=== PATIENT | male | born 1965 | race African-American/Black ===

== ENCOUNTER 2016-09-22 18:37 | Emergency (ER) | payer OTHER ==
[~2016-09-22] VITALS: Ht 170.2 cm; Wt 81.6 kg
[~2016-09-22 18:37] MED LIST: AMLO10TA2 PO; HYDR-971 PO; HYDR25TA9 PO; LISI-334 PO; METO25TA4 PO; NAPR500T3 PO; TRAM50TA PO
[2016-09-22 19:36] VITALS: BP 165/100
--- NOTE | 2016-09-22 20:00 | PHYS DOC ---
Past Medical History Past Medical History: High Cholesterol, Hypertension Additional Past Medical Histor: rt side No's Palsy,alcoholism,dyslipedemia,L hip pain,migraine, gout Past Surgical History: Other Additional Past Surgical Histo: hand surgery Alcohol Use: Heavy Drug Use: None Adult General Chief Complaint Chief Complaint: HIP PAIN HPI HPI Patient is a 51 year old male presents emergency department stating that he has having left hip pain. He states that he has a history of left hip pain for the last 4 years. He states he's been having increased difficulty with ambulation. He states that he is having pain right at the hip area denies any injuries or traumas. He is unsure of what medications he takes. Patient has been drinking alcohol today and is unable to provide a lot of information. Patient is able to ambulate with a good steady gait. Peripheral pulses are 2+. Review of Systems Review of Systems Constitutional: Denies fever or chills [] Eyes: Denies change in visual acuity, redness, or eye pain [] HENT: Denies nasal congestion or sore throat [] Respiratory: Denies cough or shortness of breath [] Cardiovascular: No additional information not addressed in HPI [] Musculoskeletal: Denies back pain. C/o left hip pain and discomfort Integument: Denies rash or skin lesions [] Neurologic: Denies headache, focal weakness or sensory changes [] Current Medications Current Medications Current Medications Medications (Trade) Dose Ordered Sig/[facility] Start Time Stop Time Status Last Admin Dose Admin Naproxen (Naprosyn) 500 mg 1X ONCE 09/22/16 20:15 09/22/16 20:16 DC 09/22/16 20:38 500 MG Allergies Allergies Allergies Coded Allergies Type Severity Reaction Last Updated Verified No Known Drug Allergies 08/17/13 No Physical Exam Physical Exam Constitutional: Well developed, well nourished, no acute distress, non-toxic appearance. [] HENT: Normocephalic, atraumatic, bilateral external ears normal, oropharynx moist, no oral exudates, nose normal. [] Eyes: PERRLA, EOMI, conjunctiva normal, no discharge. [] Neck: Normal range of motion, no tenderness, supple, no stridor. [] Cardiovascular:Heart rate regular rhythm, no murmur [] Lungs & Thorax: Bilateral breath sounds clear to auscultation [] Abdomen: Bowel sounds normal, soft, no tenderness, no masses, no pulsatile masses. [] Skin: Warm, dry, no erythema, no rash. [] Back: No tenderness Extremities: Left hip tenderness, no cyanosis, no clubbing, ROM intact, no edema. Patient with full range of motion noted. Peripheral pulses 2+. Neurologic: Alert and oriented X 3, normal motor function, normal sensory function, no focal deficits noted. [] Psychologic: Affect normal, judgement normal, mood normal. [] Current Patient Data Vital Signs Vital Signs Date Time Temp Pulse Resp B/P Pulse Ox O2 Delivery O2 Flow Rate FiO2 09/22/16 19:36 98.2 90 20 95 Room Air 98.2 EKG EKG [] Radiology/Procedures Radiology/Procedures [] Course & Med Decision Making Course & Med Decision Making Pertinent Labs and Imaging studies reviewed. (See chart for details) X-rays were negative for any fractures per Dr. Zhang. Patient will be provided with orthopedic to follow-up with. Recommended ibuprofen 800 mg every 8 hours. Patient will be discharged home in stable condition signs and symptoms to return back to emergency department has been provided. Patient agrees with discharge instructions treatment regimens and follow-up recommendations. [] Dragon Disclaimer Dragon Disclaimer This electronic medical record was generated, in whole or in part, using a voice recognition dictation system. Departure Departure Impression: Primary Impression: Hip pain, left Disposition: 01 HOME, SELF-CARE Condition: STABLE Referrals: NO PCP (PCP) DHEERAJ LOTT MD Patient Instructions: Hip Pain Additional Instructions: Activity as tolerated. Ibuprofen 800 mg every 8 hours with food. Stop taking few develop an upset stomach. Follow-up with orthopedic in the next 5-7 days. Return back to emergency department signs and symptoms of become worse. TONI BOWEN NP Sep 22, 2016 20:00
[2016-09-22] MEDS ORDERED: NAPROXEN 500 MG TABLET PO ONE (20:15)
--- NOTE | 2016-09-23 08:10 | RAD ---
Indication chronic nontraumatic left hip pain. An AP view of the pelvis was obtained as well as individual AP and frog leg views targeted to the left hip. There are substantial degenerative changes involving the left hip joint. There is significant joint space narrowing and mild sclerosis of the acetabular roof. Acute finding is not seen. 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 IMPRESSION: Substantial degenerative changes involving the left hip.
== END 2016-09-22 21:05 | disposition home or self-care (01) ==
LOC: ER 18:37
DX: M25.552 Pain in left hip (principal); M10.9 Gout, unspecified; E78.00 Pure hypercholesterolemia, unspecified; I10 Essential (primary) hypertension; G43.909 Migraine, unspecified, not intractable, without status migrainosus; E78.5 Hyperlipidemia, unspecified
CPT/HCPCS: 73502; 99284

== ENCOUNTER 2016-10-29 16:49 | Emergency (ER) | payer OTHER ==
[~2016-10-29] VITALS: Ht 170.2 cm; Wt 86.2 kg
[2016-10-29 17:34] VITALS: BP 127/81
[2016-10-29] MEDS ORDERED: NAPR375T3 PO (17:44)
--- NOTE | 2016-10-29 17:44 | PHYS DOC ---
Past Medical History Past Medical History: High Cholesterol, Hypertension Additional Past Medical Histor: rt side No's Palsy,alcoholism,dyslipedemia,L hip pain,migraine, gout Past Surgical History: Other Additional Past Surgical Histo: hand surgery Alcohol Use: Heavy Drug Use: None Adult General Chief Complaint Chief Complaint: ALCOHOL INTOXICATION HPI HPI Patient is a 51 year old female who presents with complaint of elevated blood pressure. Patient says the blood pressure has been elevated "for a long time". He is prescribed lisinopril in addition to 2 other blood pressure medications that he cannot recall. Patient says he has been compliant with his blood pressure medicines. He also reports chronic pain in his left hip, for which she has not taken any meds because he says he does not have them at home. No change from the chronic pain. He does report drinking some alcohol earlier today. He denies any chest discomfort, shortness of breath, lightheadedness. Review of Systems Review of Systems Constitutional: Denies fever or chills Eyes: Denies change in visual acuity or eye pain HENT: Denies nasal congestion or sore throat Respiratory: Denies cough or shortness of breath Cardiovascular: Denies chest pain GI: Denies abdominal pain, nausea, vomiting, bloody stools or diarrhea : Denies dysuria or hematuria Musculoskeletal: Denies back pain or joint pain Integument: Denies rash or skin lesions Neurologic: Denies headache, focal weakness or sensory changes Current Medications Current Medications Current Medications Medications (Trade) Dose Ordered Sig/Bob Start Time Stop Time Status Last Admin Dose Admin Naproxen (Naprosyn) 500 mg 1X ONCE 10/29/16 17:45 10/29/16 17:46 DC 10/29/16 17:45 500 MG Allergies Allergies Allergies Coded Allergies Type Severity Reaction Last Updated Verified No Known Drug Allergies 08/17/13 No Physical Exam Physical Exam Constitutional: Well developed, well nourished, no acute distress, non-toxic appearance. Intoxicated. HENT: Normocephalic, atraumatic, bilateral external ears normal Eyes: EOMI, conjunctiva normal, no discharge Neck: Normal range of motion, no stridor Cardiovascular: Heart rate normal, regular rhythm, no murmur Lungs & Thorax: Bilateral breath sounds clear to auscultation Abdomen: Bowel sounds normal, soft, non-distended, no TTP Skin: Warm, dry, no erythema, no rash Extremities: No obvious deformity, no edema; Mild TTP over lateral L hip; full ROM, sensation to light touch fully intact; 2+ DP pulse Neurologic: Alert and oriented X 3, no gross deficits noted Current Patient Data Vital Signs Vital Signs Date Time Temp Pulse Resp B/P Pulse Ox O2 Delivery O2 Flow Rate FiO2 10/29/16 17:34 76 18 127/81 97 Room Air 10/29/16 17:02 97.0 97.0 EKG EKG [] Radiology/Procedures Radiology/Procedures [] Course & Med Decision Making Course & Med Decision Making Pertinent Labs and Imaging studies reviewed. (See chart for details) Patient is 51-year-old male who presents with complaint of elevated blood pressure. I cycled the blood pressure when I walked into the room and it was 127 /81; of course no indication to treat his blood pressure, and he is prescribed medications that she says he has been compliant with. Also complaint of left hip pain which is chronic; review of old records shows significant degenerative changes to that hip. I discussed this with patient, and the need to follow up with orthopedic. Will give him a dose of naproxen in the ED for this pain and send him home with prescription for same. He is mildly intoxicated, however he is able to speak clearly and ambulate without assistance. His mother is present and has agreed to take him home. Will discharge with instructions to follow-up with PCP and return precautions. Dragon Disclaimer Dragon Disclaimer This electronic medical record was generated, in whole or in part, using a voice recognition dictation system. Departure Departure Impression: Primary Impression: Hip pain, left Disposition: HOME, SELF-CARE Condition: STABLE Referrals: NO PCP (PCP) BRIANNE MAHER MD Patient Instructions: Hip Pain, Hypertension Additional Instructions: Thank you for allowing us to provide care today in the Emergency Department. Take the provided medication as directed. Continue to take the blood pressure medication that you have already been prescribed. Schedule a follow up appointment with an orthopedist using the provided contact information. Return promptly to the Emergency Department if you develop any new or concerning symptoms. Scripts Naproxen 375 Mg [id number] Mg PO BID PRN PAIN #20 Prov:JUDI GARCIA MD 10/29/16 JUDI GARCIA MD Oct 29, 2016 17:44
[2016-10-29] MEDS ORDERED: NAPROXEN 500 MG TABLET PO ONE (17:45)
== END 2016-10-29 18:16 | disposition home or self-care (01) ==
LOC: ER 16:49
DX: I10 Essential (primary) hypertension (principal); M25.552 Pain in left hip; G89.29 Other chronic pain; M10.9 Gout, unspecified; E78.00 Pure hypercholesterolemia, unspecified; G43.909 Migraine, unspecified, not intractable, without status migrainosus
CPT/HCPCS: 99284-25

== ENCOUNTER 2017-07-28 19:25 | Emergency (ER) | payer SELFPAY ==
[~2017-07-28] VITALS: Ht 170.2 cm; Wt 86.2 kg
[~2017-07-28 19:25] MED LIST changes: +NAPR-695 PO; -NAPR500T3 PO; +NAPR500T4 PO
[2017-07-28 19:57] LABS: BASO % 1 % (0-3); EOS % 2 % (0-3); HEMATOCRIT 40.4 % (39.0-53.0); HEMOGLOBIN 13.7 g/dL (13.0-17.5); LYMPH # 1.6 x10^3/uL (1.0-4.8); LYMPH % 26 % (24-48); MEAN CORPUSCULAR HEMOGLOBIN 31 pg (25-35); MEAN CORPUSCULAR HGB CONC 34 g/dL (31-37); MEAN CORPUSCULAR VOLUME 90 fL (79-100); MONO % 9 % (0-9); NEUT % 62 % (31-73); PLATELET COUNT 267 x10^3/uL (140-400); RED BLOOD COUNT 4.48 x10^6/uL (4.30-5.70); RED CELL DISTRIBUTION WIDTH 15.2 % (11.5-14.5); WHITE BLOOD COUNT 6.1 x10^3/uL (4.0-11.0)
[2017-07-28 20:26] LABS: CALCIUM 8.8 mg/dL (8.5-10.1); CREATININE 1.2 mg/dL (0.7-1.3); GFR 76.6; POTASSIUM 3.7 mmol/L (3.5-5.1)
[2017-07-28] MEDS ORDERED: amLODIPine BESYLATE 5 MG TABLET PO ONE (20:30)
[2017-07-28] MEDS ORDERED: LISINOPRIL 10 MG TABLET PO ONE (20:30)
[2017-07-28] MEDS ORDERED: ATENOLOL 50 MG TABLET. PO ONE (20:30)
[2017-07-28 20:31] LABS: ALBUMIN 3.7 g/dL (3.4-5.0); ALBUMIN/GLOBULIN RATIO 1.1 (1.0-1.7); TOTAL BILIRUBIN 0.3 mg/dL (0.2-1.0); TOTAL PROTEIN 7.2 g/dL (6.4-8.2)
[2017-07-28] MEDS ORDERED: LISI-334 PO (20:33)
[2017-07-28] MEDS ORDERED: AMLO10TA2 PO (20:34)
[2017-07-28] MEDS ORDERED: ATEN25TA PO (20:34)
--- NOTE | 2017-07-28 20:34 | PHYS DOC ---
Past Medical History Past Medical History: High Cholesterol, Hypertension Additional Past Medical Histor: rt side No's Palsy,alcoholism,dyslipedemia,L hip pain,migraine, gout Past Surgical History: Other Additional Past Surgical Histo: hand surgery Alcohol Use: Heavy Drug Use: None Adult General Chief Complaint Chief Complaint: HYPERTENSION HPI HPI Patient is a 52 year old male who presents here today secondary to having elevated blood pressure for approximately 1 week. Patient reports she started having some blurred vision week ago checked his blood pressure was elevated. Patient reports he had some intermittent headaches. He denies any chest pain shortness of breath slurred speech weakness his upper or lower extremities change in his urinary habits. Mother reports no slurring of speech. Patient has a history of hypertension and is followed by his primary care doctor for this however he reports he has not seen his doctor for about a year now. He reports he has been noncompliant with his medications for approximately 6 months. Patient has any history of diabetes lung liver or kidney problems. Patient is a smoke. He drinks approximately a sixpack of beer every week. Patient has any drug allergies. Patient denies any surgeries. Review of systems: Constitutional: Denies fever or chills Eyes: Denies change in visual acuity, redness, or eye pain HENT: Denies nasal congestion or sore throat Respiratory: Denies cough or shortness of breath All other systems were reviewed and found to be within normal limits, except as documented in this note. Physical exam: Constitutional: Well developed, well nourished, no acute distress, non-toxic appearance. HENT: Normocephalic, atraumatic, bilateral external ears normal, nose normal. Eyes: PERRLA, EOMI, conjunctiva normal, no discharge. Neck: Normal range of motion, no tenderness, supple, no stridor. Cardiovascular: Heart rate regular rhythm, Lungs & Thorax: Bilateral breath sounds clear to auscultation Abdomen: No abdominal distention. Skin: Warm, dry, no erythema, no rash. Back: Normal spinal curvature Extremities: No tenderness, no cyanosis, no clubbing, ROM intact, no edema. Neurologic: Alert and oriented X 3, normal motor function, normal sensory function, no focal deficits noted. Psychologic: Affect normal, judgement normal, mood normal. Patient's ER physical exam was unremarkable. Patient's funduscopic exam did not show any evidence of papilledema. Patient's pupils are equally round and reactive to light. Extraocular motions were intact. Patient's neurological exam was within normal limits. General nurse to 12 are intact. Motor was 5 out of 5 upper and lower extremities equally bilateral. EKG reveals normal sinus rhythm heart rate of [address]-T wave abnormalities. No evidence of ST elevation [place]. As interpreted by ER physician. Assessment and plan: 1. This is a 52-year-old gentleman who presents to the ER today secondary to an elevated blood pressure and noncompliance for approximately 5-6 months. Patient reports he started having blurred vision approximately a week ago and so he came to the ER to be further evaluated. Patient has not seen his primary care physician for over a year. Patient denies any other symptomatology at this time. Patient sinus symptoms are not consistent with an acute stroke, renal failure, AZ, congestive heart failure. Patient is not exhibiting any signs or symptoms O be consistent with hypertensive emergency. While in the ER the patient was given his usual dose of medications that he has been noncompliant with. Patient was given 20 mg of lisinopril. Atenolol 25 by mouth. Amlodipine 10 mg by mouth. Patient's blood pressure has been monitored while he is in the ER however as I discussed with him we will not be overly aggressive intravenous pressure tonight as he is likely had an elevated blood pressure for quite some time. Patient understands the risks of AZ, renal failure, strokes, blindness with uncontrolled hypertension and he will follow-up with his primary care physician for reevaluation of his pressure and maintaining his and management of his medications. Current Medications Current Medications Current Medications Medications (Trade) Dose Ordered Sig/Bob Start Time Stop Time Status Last Admin Dose Admin Amlodipine Besylate (Norvasc) 10 mg 1X ONCE 07/28/17 20:30 07/28/17 20:31 07/28/17 20:15 10 MG Atenolol (Tenormin) 25 mg 1X ONCE 07/28/17 20:30 07/28/17 20:31 07/28/17 20:17 25 MG Lisinopril (Prinivil) 20 mg 1X ONCE 07/28/17 20:30 07/28/17 20:31 07/28/17 20:15 20 MG Allergies Allergies Allergies Coded Allergies Type Severity Reaction Last Updated Verified No Known Drug Allergies 08/17/13 No Current Patient Data Vital Signs Vital Signs Date Time Temp Pulse Resp B/P (MAP) Pulse Ox O2 Delivery O2 Flow Rate FiO2 07/28/17 20:17 73 149/91 07/28/17 20:13 16 96 07/28/17 19:32 98.2 Room Air 98.2 Lab Values Laboratory Tests Test 07/28/17 19:40 White Blood Count 6.1 x10^3/uL (4.0-11.0) Red Blood Count 4.48 x10^6/uL (4.30-5.70) Hemoglobin 13.7 g/dL (13.0-17.5) Hematocrit 40.4 % (39.0-53.0) Mean Corpuscular Volume 90 fL (79-100) Mean Corpuscular Hemoglobin 31 pg (25-35) Mean Corpuscular Hemoglobin Concent 34 g/dL (31-37) Red Cell Distribution Width 15.2 % (11.5-14.5) H Platelet Count 267 x10^3/uL (140-400) Neutrophils (%) (Auto) 62 % (31-73) Lymphocytes (%) (Auto) 26 % (24-48) Monocytes (%) (Auto) 9 % (0-9) Eosinophils (%) (Auto) 2 % (0-3) Basophils (%) (Auto) 1 % (0-3) Neutrophils # (Auto) 3.8 x10^3uL (1.8-7.7) Lymphocytes # (Auto) 1.6 x10^3/uL (1.0-4.8) Monocytes # (Auto) 0.6 x10^3/uL (0.0-1.1) Eosinophils # (Auto) 0.1 x10^3/uL (0.0-0.7) Basophils # (Auto) 0.0 x10^3/uL (0.0-0.2) Laboratory Tests 07/28/17 19:40 EKG EKG [] Radiology/Procedures Radiology/Procedures [] Course & Med Decision Making Course & Med Decision Making Pertinent Labs and Imaging studies reviewed. (See chart for details) [] Dragon Disclaimer Dragon Disclaimer This electronic medical record was generated, in whole or in part, using a voice recognition dictation system. Departure Departure Impression: Primary Impression: Hypertension Additional Impression: Noncompliance Disposition: HOME, SELF-CARE Condition: IMPROVED Referrals: NO PCP (PCP) Patient Instructions: Hypertension Additional Instructions: Please make sure you make an appointment to see her primary care physician within the week. Your blood pressure was extremely high today. Your doctor will need to readjust all your medications for you have to been on them for several days. Please return the ER if he started experiencing any new or concerning symptoms such as chest pain, shortness of breath, weakness or arms or legs, slurring her speech. Scripts Amlodipine Besylate (AMLODIPINE BESYLATE) 10 Mg Tablet 10 MG PO DAILY, #30 TAB Prov: WEST SCHWARTZ MD 07/28/17 Atenolol (ATENOLOL) 25 Mg Tablet 1 TAB PO BID, #30 TAB 5 Refills Prov: WEST SCHWARTZ MD 07/28/17 Lisinopril (LISINOPRIL) 20 Mg Tablet 1 TAB PO DAILY, #30 TAB 5 Refills Prov: WEST SCHWARTZ MD 07/28/17 Problem Qualifiers WEST SCHWARTZ MD Jul 28, 2017 20:34
[2017-07-28 20:42] LABS: BILIRUBIN,URINE NEGATIVE (NEG); GLUCOSE,URINE NEGATIVE (NEG); NITRITE,URINE NEGATIVE (NEG); PH,URINE 5.5; PROTEIN,URINE NEGATIVE (NEG-TRACE); UROBILINOGEN,URINE 0.2 mg/dL (0.2 mg/dL)
--- NOTE | 2017-07-28 20:44 | RAD ---
EXAM: Head CT without contrast. HISTORY: Hypertension. Headache. Vision changes. TECHNIQUE: Computed tomographic images of the head were obtained without contrast. *One or more of the following individualized dose reduction techniques were utilized for this examination: 1. Automated exposure control. 2. Adjustment of the mA and/or kV according to patient size. 3. Use of iterative reconstruction technique. COMPARISON: 02/02/2014. FINDINGS: There is no acute or subacute extra-axial or intraparenchymal hemorrhage. There is no mass effect or midline shift. There is no hydrocephalus. There are scattered areas of hypodensity within the cerebral white matter, a nonspecific finding. The visualized portions of the orbits, paranasal sinuses and mastoid air cells are unremarkable. No suspicious calvarial lesion is seen. IMPRESSION: 1. No acute intracranial finding. 2. Scattered areas of hypodensity within the cerebral white matter, a nonspecific finding. This is slightly increased compared to the prior study. The differential includes etiologies such as chronic small vessel disease and chronic demyelinating disease. Electronically signed by: Millicent Mcgee MD (07/28/2017 8:41 PM) [facility]
[2017-07-28 20:50] LABS: BARBITURATES NEG (NEG); BENZODIAZEPINES NEG (NEG); CANNABINOIDS NEG (NEG); COCAINE NEG (NEG); METHADONE NEG (NEG); OPIATES NEG (NEG); PHENCYCLIDINE NEG (NEG)
[2017-07-28 21:02] LABS: BACTERIA,URINE 0 /HPF (0-FEW); RBC,URINE 0 /HPF (0-2); WBC,URINE 0 /HPF (0-4)
[2017-07-28 21:06] VITALS: BP 163/107
--- NOTE | 2017-07-29 08:37 | RAD ---
Single view chest History:Hypertension, headache, vision changes An AP view of the chest is submitted. Comparison: 12/18/2012. Findings: There is no significant infiltrate, pleural effusion, or pneumothorax. The pericardial cardiac silhouette is within normal limits in size. The trachea is in the midline. No acute osseous abnormality is identified. Impression: There is no evidence of acute cardiopulmonary disease.
--- NOTE | 2017-07-29 12:51 | EKG ---
[facility] [address] [place] [address] Test Date: 2017-07-28 Test Time: 20:03:11 Pat Name: SALAZAR LOPEZ Department: Room: Gender: M [employer] Steward: NICOLETTE : 1965 Requested By: ROBBY PORTILLO Order Number: [id number] Reading MD: Jason Murphy Measurements Intervals [place] Rate: 74 P: 49 NH: 200 QRS: 29 QRSD: 102 T: -17 QT: 376 QTc: 422 Interpretive Statements SINUS RHYTHM QRS(T) CONTOUR ABNORMALITY CONSISTENT WITH ANTEROSEPTAL INFARCT PROBABLY OLD ST & T ABNORMALITY, CONSIDER INFERIOR ISCHEMIA OR LEFT VENTRICULAR STRAIN ABNORMAL ECG Electronically Signed On 08-07-2017 14:14:40 BIT TRIPOLER by Jason Murphy
== END 2017-07-28 21:08 | disposition home or self-care (01) ==
LOC: ER 19:25
DX: I10 Essential (primary) hypertension (principal); Z91.14 Patient's other noncompliance with medication regimen; R51 Headache; E78.00 Pure hypercholesterolemia, unspecified; M10.9 Gout, unspecified; G51.0 Bell's palsy; F10.20 Alcohol dependence, uncomplicated
CPT/HCPCS: 36415; 70450; 71010; 80053; 80307; 81001; 83880; 84484; 85025; 93005; 99285-25; G0479

== ENCOUNTER 2017-10-17 17:15 | Emergency (ER) | payer SELFPAY | END 2017-10-17 19:24 | disposition home or self-care (01) | LOC: ER 17:15 | DX: I10 Essential (primary) hypertension (principal); E78.00 Pure hypercholesterolemia, unspecified; M10.9 Gout, unspecified; G51.0 Bell's palsy; F10.20 Alcohol dependence, uncomplicated | CPT/HCPCS: 93005; 99283 ==

== ENCOUNTER 2018-07-12 20:51 | Emergency (ER) | payer SELFPAY ==
[~2018-07-12] VITALS: Ht 170.2 cm; Wt 83.9 kg
[~2018-07-12 20:51] MED LIST changes: -AMLO10TA2 PO; +AMLO10TA6 PO; +ATEN25TA PO; +NAPR-514 PO; -NAPR500T4 PO
[2018-07-12] MEDS ORDERED: LISINOPRIL 10 MG TABLET PO ONE (21:30)
--- NOTE | 2018-07-12 21:33 | PHYS DOC ---
Past Medical History Past Medical History: High Cholesterol, Hypertension Additional Past Medical Histor: migranes, gout, bells palsy, alcoholism Past Surgical History: Other Additional Past Surgical Histo: hand surgery Alcohol Use: Heavy Drug Use: None Adult General Chief Complaint Chief Complaint: HYPERTENSION HPI HPI Patient is a 53 year old male who presents with high blood pressure. Patient reports that he was diagnosed with high blood pressure in January or February of this year. Patient is on a once a day medicine that he cannot remember. Patient takes it intermittently. Patient denies any chest pain, palpitations, headache, change in vision, difficulty breathing, nor any other complaints. Patient reports he last took his blood pressure medicine 2 days ago. Patient reports that he is concerned about his blood pressure. Patient denies adding extra salt to his food.[] Review of Systems Review of Systems Constitutional: Denies fever or chills [] Eyes: Denies change in visual acuity, redness, or eye pain [] HENT: Denies nasal congestion or sore throat [] Respiratory: Denies cough or shortness of breath [] Cardiovascular: No chest pain or palpitations[] GI: Denies abdominal pain, nausea, vomiting, bloody stools or diarrhea [] : Denies dysuria or hematuria [] Musculoskeletal: Denies back pain or joint pain [] Integument: Denies rash or skin lesions [] Neurologic: Denies headache, focal weakness or sensory changes [] Endocrine: Denies polyuria or polydipsia [] All other systems were reviewed and found to be within normal limits, except as documented in this note. Current Medications Current Medications Current Medications Medications (Trade) Dose Ordered Sig/[facility] Start Time Stop Time Status Last Admin Dose Admin Lisinopril (Prinivil) 20 mg 1X ONCE 07/12/18 21:30 07/12/18 21:31 DC Allergies Allergies Allergies Coded Allergies Type Severity Reaction Last Updated Verified No Known Drug Allergies 08/17/13 No Physical Exam Physical Exam Constitutional: Well developed, well nourished, no acute distress, non-toxic appearance. [] HENT: Normocephalic, atraumatic, bilateral external ears normal, oropharynx moist, no oral exudates, nose normal. [] Eyes: PERRLA, EOMI, conjunctiva normal, no discharge. [] Neck: Normal range of motion, no tenderness, supple, no stridor. [] Cardiovascular:Heart rate regular rhythm, no murmur [] Lungs & Thorax: Bilateral breath sounds clear to auscultation [] Abdomen: Bowel sounds normal, soft, no tenderness, no masses, no pulsatile masses. [] Skin: Warm, dry, no erythema, no rash. [] Back: No tenderness, no CVA tenderness. [] Extremities: No tenderness, no cyanosis, no clubbing, ROM intact, no edema. [] Neurologic: Alert and oriented X 3, normal motor function, normal sensory function, no focal deficits noted. [] Psychologic: Affect flat, judgement normal, mood normal. [] Current Patient Data Vital Signs Vital Signs Date Time Temp Pulse Resp B/P (MAP) Pulse Ox O2 Delivery O2 Flow Rate FiO2 07/12/18 21:22 97.6 78 18 189/118 (141) 98 Room Air 97.6 Lab Values Laboratory Tests Test 07/12/18 21:19 07/12/18 22:05 Urine Collection Type Unknown Urine Color Yellow Urine Clarity Clear Urine pH 5.0 Urine Specific [place] <=1.005 Urine Protein Negative mg/dL (NEG-TRACE) Urine Glucose (UA) Negative mg/dL (NEG) Urine Ketones (Stick) Negative mg/dL (NEG) Urine Blood Negative (NEG) Urine Nitrite Negative (NEG) Urine Bilirubin Negative (NEG) Urine Urobilinogen Dipstick 0.2 mg/dL (0.2 mg/dL) Urine Leukocyte Esterase Negative (NEG) Urine RBC 0 /HPF (0-2) Urine WBC 0 /HPF (0-4) Urine Squamous Epithelial Cells Occ /LPF Urine Bacteria 0 /HPF (0-FEW) Urine Opiates Screen Neg (NEG) Urine Methadone Screen Neg (NEG) Urine Barbiturates Neg (NEG) Urine Phencyclidine Screen Neg (NEG) Urine Amphetamine/Methamphetamine Neg (NEG) Urine Benzodiazepines Screen Neg (NEG) Urine Cocaine Screen Neg (NEG) Urine Cannabinoids Screen Neg (NEG) Urine Ethyl Alcohol Pos (NEG) White Blood Count 4.1 x10^3/uL (4.0-11.0) Red Blood Count 4.18 x10^6/uL (4.30-5.70) L Hemoglobin 13.2 g/dL (13.0-17.5) Hematocrit 38.0 % (39.0-53.0) L Mean Corpuscular Volume 91 fL (79-100) Mean Corpuscular Hemoglobin 32 pg (25-35) Mean Corpuscular Hemoglobin Concent 35 g/dL (31-37) Red Cell Distribution Width 15.3 % (11.5-14.5) H Platelet Count 278 x10^3/uL (140-400) Neutrophils (%) (Auto) 62 % (31-73) Lymphocytes (%) (Auto) 27 % (24-48) Monocytes (%) (Auto) 9 % (0-9) Eosinophils (%) (Auto) 2 % (0-3) Basophils (%) (Auto) 0 % (0-3) Neutrophils # (Auto) 2.6 x10^3uL (1.8-7.7) Lymphocytes # (Auto) 1.1 x10^3/uL (1.0-4.8) Monocytes # (Auto) 0.4 x10^3/uL (0.0-1.1) Eosinophils # (Auto) 0.1 x10^3/uL (0.0-0.7) Basophils # (Auto) 0.0 x10^3/uL (0.0-0.2) Sodium Level 144 mmol/L (136-145) Potassium Level 4.0 mmol/L (3.5-5.1) Chloride Level 104 mmol/L (98-107) Carbon Dioxide Level 29 mmol/L (21-32) Anion Gap 11 (6-14) Blood Urea Nitrogen 10 mg/dL (8-26) Creatinine 1.1 mg/dL (0.7-1.3) Estimated GFR (Cockcroft-Gault) 84.4 Glucose Level 84 mg/dL (70-99) Calcium Level 9.0 mg/dL (8.5-10.1) Magnesium Level 2.0 mg/dL (1.8-2.4) Thyroid Stimulating Hormone (TSH) 1.207 uIU/mL (0.358-3.74) Laboratory Tests 07/12/18 22:05 Laboratory Tests 07/12/18 22:05 EKG EKG EKG at 23/09/16 shows a sinus rhythm, normal axis, QTC of 427 ms, compared with EKG of 10/17/2017, no acute changes are noted.[] Radiology/Procedures Radiology/Procedures Chest x-ray shows no cardiomegaly, no infiltrate, no effusion[] Course & Med Decision Making Course & Med Decision Making Pertinent Labs and Imaging studies reviewed. (See chart for details) ED course: Patient arrived, was placed in bed, and tolerated exam well. Patient' s blood pressure improved to the 130s systolic while he was in the emergency department. Patient tolerated a meal. Patient denied any chest pain or difficulty breathing during his emergency department stay. Patient was discharged in improved condition. Decision making: Patient appears to have poorly controlled high blood pressure. There is no evidence of end organ dysfunction at this time. No evidence of malignant hypertension.[] Dragon Disclaimer Dragon Disclaimer This electronic medical record was generated, in whole or in part, using a voice recognition dictation system. Departure Departure Impression: Primary Impression: Poorly-controlled hypertension Disposition: 01 HOME, SELF-CARE Condition: GOOD Referrals: NO PCP (PCP) Patient Instructions: Hypertension Additional Instructions: Take your medication as prescribed. Follow-up with your regular doctor in 2 days. Avoid processed foods such as boxed and prepare meals, along with additional salt in your diet. Return to the ER if pulse breathing, chest pain, or any other concerns. PANTERA JENESN DO Jul 12, 2018 21:33
[2018-07-12 21:47] LABS: BILIRUBIN,URINE NEGATIVE (NEG); CLARITY,URINE CLEAR; COLOR,URINE YELLOW; NITRITE,URINE NEGATIVE (NEG); PROTEIN,URINE NEGATIVE (NEG-TRACE); UROBILINOGEN,URINE 0.2 mg/dL (0.2 mg/dL)
[2018-07-12 21:52] LABS: BARBITURATES NEG (NEG); BENZODIAZEPINES NEG (NEG); CANNABINOIDS NEG (NEG); COCAINE NEG (NEG); METHADONE NEG (NEG); OPIATES NEG (NEG); PHENCYCLIDINE NEG (NEG)
[2018-07-12 21:54] LABS: AMPHETAMINE/METHAMPHETAMINE NEG (NEG)
[2018-07-12 22:00] LABS: BACTERIA,URINE 0 /HPF (0-FEW); RBC,URINE 0 /HPF (0-2); SQUAMOUS EPITHELIAL CELL,UR OCC /LPF; WBC,URINE 0 /HPF (0-4)
--- NOTE | 2018-07-12 22:01 | RAD ---
EXAM: Chest, 2 views. HISTORY: Hypertension. COMPARISON: 07/28/2017 FINDINGS: 2 views of the chest are obtained. There is no infiltrate, pleural effusion or pneumothorax. The heart is normal in size. There is suspected right apical pleural parenchymal scarring. IMPRESSION: No acute pulmonary finding. Electronically signed by: Millicent Mcgee MD (07/12/2018 9:58 PM) [facility]
[2018-07-12 22:17] LABS: BASO % 0 % (0-3); EOS # 0.1 x10^3/uL (0.0-0.7); EOS % 2 % (0-3); HEMOGLOBIN 13.2 g/dL (13.0-17.5); LYMPH # 1.1 x10^3/uL (1.0-4.8); LYMPH % 27 % (24-48); MEAN CORPUSCULAR HEMOGLOBIN 32 pg (25-35); MEAN CORPUSCULAR HGB CONC 35 g/dL (31-37); MEAN CORPUSCULAR VOLUME 91 fL (79-100); MONO # 0.4 x10^3/uL (0.0-1.1); MONO % 9 % (0-9); NEUT # 2.6 x10^3uL (1.8-7.7); NEUT % 62 % (31-73); PLATELET COUNT 278 x10^3/uL (140-400); RED BLOOD COUNT 4.18 x10^6/uL (4.30-5.70); RED CELL DISTRIBUTION WIDTH 15.3 % (11.5-14.5); WHITE BLOOD COUNT 4.1 x10^3/uL (4.0-11.0)
[2018-07-12 22:26] LABS: CREATININE 1.1 mg/dL (0.7-1.3); GFR 84.4
[2018-07-12 22:45] VITALS: BP 179/94
--- NOTE | 2018-07-13 01:37 | EKG ---
[facility] [address] [place] [address] Test Date: 2018-07-12 Test Time: 21:17:29 Pat Name: SALAZAR LOPEZ Department: Room: Gender: M Quality And Reliability Engineer: : 1965 Requested By: PANTERA JENSEN Order Number: [id number] Reading MD: Wilbert Gallego MD Measurements Intervals [place] Rate: 76 P: 77 CA: 174 QRS: 58 QRSD: 108 T: -11 QT: 380 QTc: 427 Interpretive Statements SINUS RHYTHM NON-SPECIFIC ST/T CHANGES Electronically Signed On 07-16-2018 11:15:38 SATURATOR by Wilbert Gallego MD
== END 2018-07-12 22:56 | disposition home or self-care (01) ==
LOC: ER 20:51
DX: I10 Essential (primary) hypertension (principal); E78.00 Pure hypercholesterolemia, unspecified; F10.20 Alcohol dependence, uncomplicated; Y90.8 Blood alcohol level of 240 mg/100 ml or more
CPT/HCPCS: 36415; 71046; 80048; 80307; 81001; 83735; 84443; 84484; 85025; 93005; 99285; G0480

== ENCOUNTER 2018-07-18 13:33 | Emergency (ER) | payer SELFPAY ==
[~2018-07-18] VITALS: Ht 180.3 cm; Wt 83.9 kg
[~2018-07-18 13:33] MED LIST changes: +HYDR-3164 PO; -HYDR-971 PO
[2018-07-18] MEDS ORDERED: cloNIDine HCL 0.1 MG TABLET PO ONE (14:15)
--- NOTE | 2018-07-18 15:32 | PHYS DOC ---
Past Medical History Past Medical History: High Cholesterol, Hypertension Additional Past Medical Histor: migranes, gout, bells palsy, alcoholism Past Surgical History: Other Additional Past Surgical Histo: hand surgery Alcohol Use: Heavy Drug Use: None Adult General Chief Complaint Chief Complaint: HYPERTENSION HPI HPI Patient is a 53 year old male with history of hypertension, alcohol abuse, who presents from work stating his job sent him to the ED to be evaluated by Mimi between 1:30 and 2 PM today. Patient states he is not sure why he was sent to the ED. He states he has history of alcohol abuse and they are trying to help him. Patient denies any suicidal or homicidal ideations. Patient states he drank 3 bottles of beer today. Review of Systems Review of Systems Constitutional: Denies fever or chills [] Eyes: Denies change in visual acuity, redness, or eye pain [] HENT: Denies nasal congestion or sore throat [] Respiratory: Denies cough or shortness of breath [] Cardiovascular: No additional information not addressed in HPI [] GI: Denies abdominal pain, nausea, vomiting, bloody stools or diarrhea [] : Denies dysuria or hematuria [] Musculoskeletal: Denies back pain or joint pain [] Integument: Denies rash or skin lesions [] Neurologic: Denies headache, focal weakness or sensory changes [] Psych: Need for help with alcohol abuse All other systems were reviewed and found to be within normal limits, except as documented in this note. Current Medications Current Medications Current Medications Medications (Trade) Dose Ordered Sig/[facility] Start Time Stop Time Status Last Admin Dose Admin Clonidine HCl (Catapres) 0.2 mg 1X ONCE 07/18/18 14:15 07/18/18 14:16 DC Allergies Allergies Allergies Coded Allergies Type Severity Reaction Last Updated Verified No Known Drug Allergies 08/17/13 No Physical Exam Physical Exam Constitutional: Well developed, well nourished, no acute distress, non-toxic appearance. [] HENT: Normocephalic, atraumatic, bilateral external ears normal, oropharynx moist, no oral exudates, nose normal. [] Eyes: PERRLA, EOMI, conjunctiva normal, no discharge. [] Neck: Normal range of motion, no tenderness, supple, no stridor. [] Cardiovascular:Heart rate regular rhythm, no murmur [] Lungs & Thorax: Bilateral breath sounds clear to auscultation [] Abdomen: Bowel sounds normal, soft, no tenderness, no masses, no pulsatile masses. [] Skin: Warm, dry, no erythema, no rash. [] Back: No tenderness, no CVA tenderness. [] Extremities: No tenderness, no cyanosis, no clubbing, ROM intact, no edema. [] Neurologic: Alert and oriented X 3, normal motor function, normal sensory function, no focal deficits noted. [] Psychologic: Appears drunk. Current Patient Data Vital Signs Vital Signs Date Time Temp Pulse Resp B/P (MAP) Pulse Ox O2 Delivery O2 Flow Rate FiO2 07/18/18 14:21 78 18 98 07/18/18 13:45 98.4 164/100 (121) Room Air 98.4 EKG EKG [] Radiology/Procedures Radiology/Procedures [] Course & Med Decision Making Course & Med Decision Making Pertinent Labs and Imaging studies reviewed. (See chart for details) This is a 53-year-old male patient presenting to the ED today to be evaluated stating he was sent to the ED to be seen by Mimi for alcohol abuse. I called Mimi from the PAT team who sent Napoleon to talk to patient. Napoleon states patient needs to follow-up with [facility]. He requested we discharge patient to home. Ilsa Disclaimer Ilsa Disclaimer This electronic medical record was generated, in whole or in part, using a voice recognition dictation system. Departure Departure Impression: Primary Impression: Alcohol intoxication Disposition: HOME, SELF-CARE Condition: STABLE Referrals: NO PCP (PCP) follow up with your doctor in one week Patient Instructions: Alcohol Intoxication, [id number] Additional Instructions: You were evaluated in the emergency room. We recommend you follow-up with [facility] for help with alcohol use. Problem Qualifiers Primary Impression: Alcohol intoxication Complication of substance-induced condition: with unspecified complication Qualified Codes: F10.929 - Alcohol use, unspecified with intoxication, unspecified MUTUNGAGÓMEZ LIFT ELECTRICIAN Jul 18, 2018 15:32
[2018-07-18 15:45] VITALS: BP 160/94
== END 2018-07-18 15:44 | disposition home or self-care (01) ==
LOC: ER 13:33
DX: F10.229 Alcohol dependence with intoxication, unspecified (principal); I10 Essential (primary) hypertension; E78.00 Pure hypercholesterolemia, unspecified; M10.9 Gout, unspecified; Y90.9 Presence of alcohol in blood, level not specified
CPT/HCPCS: 99283

== ENCOUNTER 2019-04-19 12:57 | Inpatient (IN) | payer SELFPAY ==
[~2019-04-19] VITALS: Ht 170.2 cm; Wt 88.6 kg
[~2019-04-19 12:57] MED LIST changes: -AMLO10TA6 PO; +AMLO10TA8 PO; +HYDR-2145 PO; -HYDR25TA9 PO
[2019-04-19] MEDS ORDERED: ASPIRIN 325 MG TABLET PO ONE (13:45)
--- NOTE | 2019-04-19 14:25 | EKG ---
[facility] [address] [place] [address] Test Date: 2019-04-19 Test Time: 13:50:36 Pat Name: SALAZAR LOPEZ Department: Room: Gender: M Hedis Abstractor: : 1965 Requested By: TONI BARNARD Order Number: [id number] Reading MD: Measurements Intervals [place] Sleep Rate: 68 P: 49 IN: 194 QRS: 11 QRSD: 104 T: -36 QT: 390 QTc: 419 Interpretive Statements SINUS RHYTHM QRS(T) CONTOUR ABNORMALITY CONSISTENT WITH ANTEROSEPTAL INFARCT POSSIBLY RECENT T ABNORMALITY IN INFERIOR LEADS ABNORMAL ECG RI6.01 No previous ECG available for comparison
[2019-04-19 14:29] LABS: BASO % 1 % (0-3); EOS # 0.4 x10^3/uL (0.0-0.7); EOS % 8 % (0-3); HEMATOCRIT 39.7 % (39.0-53.0); HEMOGLOBIN 13.6 g/dL (13.0-17.5); LYMPH # 1.2 x10^3/uL (1.0-4.8); LYMPH % 23 % (24-48); MEAN CORPUSCULAR HEMOGLOBIN 31 pg (25-35); MEAN CORPUSCULAR HGB CONC 34 g/dL (31-37); MEAN CORPUSCULAR VOLUME 90 fL (79-100); MONO # 0.5 x10^3/uL (0.0-1.1); MONO % 11 % (0-9); NEUT % 59 % (31-73); PLATELET COUNT 228 x10^3/uL (140-400); RED BLOOD COUNT 4.43 x10^6/uL (4.30-5.70); RED CELL DISTRIBUTION WIDTH 14.8 % (11.5-14.5); WHITE BLOOD COUNT 5.2 x10^3/uL (4.0-11.0)
--- NOTE | 2019-04-19 14:35 | RAD ---
CHEST PA LATERAL INDICATION: Chest pain. COMPARISON STUDY: 07/22/2018. FINDINGS: Lungs: Normal lung volume. No pulmonary mass or consolidation. The tracheobronchial tree and hilar structures are normal. Pleura: No pleural effusion or pneumothorax. Heart and Mediastinum: The cardiomediastinal silhouette is normal. The great vessels of the thorax are normal. Bones and Soft Tissues: Multilevel degenerative changes of the spine. IMPRESSION: No acute cardiopulmonary process. Electronically signed by: René Vargas MD (04/19/2019 2:32 PM) [id number]
--- NOTE | 2019-04-19 14:36 | RAD ---
SCAPULA LEFT DATE: 04/19/2019 1:31 PM INDICATION: Left scapula pain COMPARISON: None. FINDINGS/ IMPRESSION: There is no evidence of acute fracture. Acromioclavicular and glenohumeral joints are congruent. Electronically signed by: René Vargas MD (04/19/2019 2:33 PM) [id number]
[2019-04-19 14:44] LABS: CALCIUM 9.4 mg/dL (8.5-10.1); CREATININE 1.2 mg/dL (0.7-1.3); GFR 76.3; POTASSIUM 3.7 mmol/L (3.5-5.1)
[2019-04-19 14:50] LABS: ALBUMIN 3.9 g/dL (3.4-5.0); ALBUMIN/GLOBULIN RATIO 1.1 (1.0-1.7); TOTAL BILIRUBIN 0.3 mg/dL (0.2-1.0); TOTAL PROTEIN 7.5 g/dL (6.4-8.2)
--- NOTE | 2019-04-19 15:04 | PHYS DOC ---
Past Medical History Past Medical History: High Cholesterol, Hypertension Additional Past Medical Histor: migranes, gout, bells palsy, alcoholism Past Surgical History: Other Additional Past Surgical Histo: hand surgery Alcohol Use: Heavy Drug Use: None The HEART Score for CP Pts Risk Factors: Risk Factors: DM, Current or recent (<one month) smoker, HTN, HLP, family history of CAD, obesity. Risk Scores: Score 0 - 3: 2.5% MACE over next 6 weeks - Discharge Home Score 4 - 6: 20.3% MACE over next 6 weeks - Admit for Clinical Observation Score 7 - 10: 72.7% MACE over next 6 weeks - Early Invasive Strategies Adult General Chief Complaint Chief Complaint: SHOUDLER HPI HPI Patient is a 53 year old male who presents with left chest pain that comes and goes for the last week states that they achy pain. Patient states he's also has left shoulder blade pain with movement and there is no injury and has been going on for the last month. Patient has history of hypertension, high cholesterol, alcoholism. Patient rates his pain a 7 out of 10. Review of Systems Review of Systems Constitutional: Denies fever or chills [] Eyes: Denies change in visual acuity, redness, or eye pain [] HENT: Denies nasal congestion or sore throat [] Respiratory: Denies cough or shortness of breath [] Cardiovascular: left chest pain x 1 week off and on GI: Denies abdominal pain, nausea, vomiting, bloody stools or diarrhea [] : Denies dysuria or hematuria [] Musculoskeletal: Left scapula pain. Denies back pain or joint pain [] Integument: Denies rash or skin lesions [] Neurologic: Denies headache, focal weakness or sensory changes [] Endocrine: Denies polyuria or polydipsia [] All other systems were reviewed and found to be within normal limits, except as documented in this note. Current Medications Current Medications Current Medications Medications (Trade) Dose Ordered Sig/[facility] Start Time Stop Time Status Last Admin Dose Admin Aspirin (Julio Aspirin) 325 mg 1X ONCE 04/19/19 13:45 04/19/19 13:46 DC 04/19/19 13:55 325 MG Clonidine HCl (Catapres) 0.1 mg 1X ONCE 04/19/19 15:30 04/19/19 15:31 DC 04/19/19 15:17 0.1 MG Hydralazine HCl (Apresoline Inj) 10 mg 1X ONCE 04/19/19 16:15 04/19/19 16:16 DC 04/19/19 16:27 10 MG Allergies Allergies Allergies Coded Allergies Type Severity Reaction Last Updated Verified No Known Drug Allergies 08/17/13 No Physical Exam Physical Exam Constitutional: Well developed, well nourished, no acute distress, non-toxic appearance. [] HENT: Normocephalic, atraumatic, bilateral external ears normal, oropharynx moist, no oral exudates, nose normal. [] Eyes: PERRLA, EOMI, conjunctiva normal, no discharge. [] Neck: Normal range of motion, no tenderness, supple, no stridor. [] Cardiovascular:Heart rate regular rhythm, no murmur [] Lungs & Thorax: Bilateral breath sounds clear to auscultation [] Abdomen: Bowel sounds normal, soft, no tenderness, no masses, no pulsatile masses. [] Skin: Warm, dry, no erythema, no rash. [] Back: Left paraspinal pain right beside left scapula bone. No tenderness, no CVA tenderness. [] Extremities: No tenderness, no cyanosis, no clubbing, ROM intact, no edema. [] Neurologic: Alert and oriented X 3, normal motor function, normal sensory function, no focal deficits noted. [] Psychologic: Affect normal, judgement normal, mood normal. [] Current Patient Data Vital Signs Vital Signs Date Time Temp Pulse Resp B/P (MAP) Pulse Ox O2 Delivery O2 Flow Rate FiO2 04/19/19 16:27 64 184/116 04/19/19 15:18 20 95 Room Air 04/19/19 13:05 98.4 98.4 Lab Values Laboratory Tests Test 04/19/19 14:20 White Blood Count 5.2 x10^3/uL (4.0-11.0) Red Blood Count 4.43 x10^6/uL (4.30-5.70) Hemoglobin 13.6 g/dL (13.0-17.5) Hematocrit 39.7 % (39.0-53.0) Mean Corpuscular Volume 90 fL (79-100) Mean Corpuscular Hemoglobin 31 pg (25-35) Mean Corpuscular Hemoglobin Concent 34 g/dL (31-37) Red Cell Distribution Width 14.8 % (11.5-14.5) H Platelet Count 228 x10^3/uL (140-400) Neutrophils (%) (Auto) 59 % (31-73) Lymphocytes (%) (Auto) 23 % (24-48) L Monocytes (%) (Auto) 11 % (0-9) H Eosinophils (%) (Auto) 8 % (0-3) H Basophils (%) (Auto) 1 % (0-3) Neutrophils # (Auto) 3.0 x10^3/uL (1.8-7.7) Lymphocytes # (Auto) 1.2 x10^3/uL (1.0-4.8) Monocytes # (Auto) 0.5 x10^3/uL (0.0-1.1) Eosinophils # (Auto) 0.4 x10^3/uL (0.0-0.7) Basophils # (Auto) 0.0 x10^3/uL (0.0-0.2) Sodium Level 142 mmol/L (136-145) Potassium Level 3.7 mmol/L (3.5-5.1) Chloride Level 105 mmol/L (98-107) Carbon Dioxide Level 31 mmol/L (21-32) Anion Gap 6 (6-14) Blood Urea Nitrogen 12 mg/dL (8-26) Creatinine 1.2 mg/dL (0.7-1.3) Estimated GFR (Cockcroft-Gault) 76.3 BUN/Creatinine Ratio 10 (6-20) Glucose Level 89 mg/dL (70-99) Calcium Level 9.4 mg/dL (8.5-10.1) Total Bilirubin 0.3 mg/dL (0.2-1.0) Aspartate Amino Transferase (AST) 22 U/L (15-37) Alanine Aminotransferase (ALT) 51 U/L (16-63) Alkaline Phosphatase 78 U/L (46-116) Troponin I Quantitative < 0.017 ng/mL (0.000-0.055) Total Protein 7.5 g/dL (6.4-8.2) Albumin 3.9 g/dL (3.4-5.0) Albumin/Globulin Ratio 1.1 (1.0-1.7) Laboratory Tests 04/19/19 14:20 Laboratory Tests 04/19/19 14:20 EKG EKG SINUS RHYTHM, NO STEMI[] Interpretation Time: [address] SERRANO Radiology/Procedures Radiology/Procedures [] Impressions: [facility] [address] [place] [address] IMAGING REPORT Signed PATIENT: SALAZAR LOPEZ DACCOUNT: [id number] : 1965 LOCATION: ER AGE: 53 SEX: M EXAM STATUS: REG ER ORD. PHYSICIAN: TONI BARNARD APRN REASON: chest pain PROCEDURE: CHEST PA & LATERAL CHEST PA LATERAL INDICATION: Chest pain. COMPARISON STUDY: 07/22/2018. FINDINGS: Lungs: Normal lung volume. No pulmonary mass or consolidation. The tracheobronchial tree and hilar structures are normal. Pleura: No pleural effusion or pneumothorax. Heart and Mediastinum: The cardiomediastinal silhouette is normal. The great vessels of the thorax are normal. Bones and Soft Tissues: Multilevel degenerative changes of the spine. IMPRESSION: No acute cardiopulmonary process. Electronically signed by: Maximiliano Vargas MD (04/19/2019 2:32 PM) [id number] DICTATED and SIGNED BY: MAXIMILIANO VARGAS MD DATE: 04/19/19 1432 Course & Med Decision Making Course & Med Decision Making Patient is a 53 year old male who presents with left chest pain that comes and goes for the last week states that they achy pain. Patient states he's also has left shoulder blade pain with movement and there is no injury and has been going on for the last month. Patient has history of hypertension, high cholesterol, alcoholism. Patient rates his pain a 7 out of 10. Patients chest is not currently hurting. Patient states his left scapula aches especially with movement it's worse. Patient has left paraspinal pain that is beside the scapula bone. The spot is tender with palpation. Denies injury. Patient has full range of motion in the scapula and left arm and shoulder at all joints. Lungs are c lear to auscultation in all lobes. EKG shows sinus rhythm and no STEMI. No extremity swelling. Patient states the chest pain does not radiate anywhere. Patient denies shortness of breath, chest pain at this time, dizziness, vomiting, nausea, diarrhea, cough, recent illness, smoking, syncope him a he adache, visual changes. Patient is hypertensive at 190s over 100s. Patient is asymptomatic. Chest and scapula X-ray shows no acute findings. Heart score 2. Troponin is negative. Lab work is unremarkable. Patient is given a clonidine for his blood pressure. 1610: After Clonidine is given patient's blood pressure still 200s over 100s. Patient states he takes amlodipine and metoprolol every day as prescribed for his blood pressure. Patient does not have a primary care provider but goes to [facility]. Heart rate 65. Hydralazine is ordered 10mg per Dr Serrano. 1648: Hydralazine given and blood pressure down to 184/110. Patient is admitted by Dr Mcknight for hypertension. Dragon Disclaimer Dragon Disclaimer This electronic medical record was generated, in whole or in part, using a voice recognition dictation system. The HEART Score for CP Pts HEART Score for Chest Pain: HEART Score for Chest Pain Response (Comments) Value History Slighlty/Non-Suspicious 0 ECG Normal 0 Age >45 - < 65 1 Risk Factors 1 or 2 Risk Factors 1 Troponin < Normal Limit 0 Total 2 Risk Factors: Risk Factors: DM, Current or recent (<one month) smoker, HTN, HLP, family history of CAD, obesity. Risk Scores: Score 0 - 3: 2.5% MACE over next 6 weeks - Discharge Home Score 4 - 6: 20.3% MACE over next 6 weeks - Admit for Clinical Observation Score 7 - 10: 72.7% MACE over next 6 weeks - Early Invasive Strategies Departure Departure Impression: Primary Impression: Hypertension Additional Impression: Chest pain Disposition: 09 ADMITTED INPATIENT Admitting Physician: HIMS Condition: STABLE Referrals: NO PCP (PCP) Problem Qualifiers Primary Impression: Hypertension Hypertension type: essential hypertension Qualified Codes: I10 - Essential (primary) hypertension Additional Impression: Chest pain Chest pain type: unspecified Qualified Codes: R07.9 - Chest pain, unspecified TONI BARNARD RADIO INTERFERENCE TROUBLE SHOOTER Apr 19, 2019 15:04
[2019-04-19] MEDS ORDERED: cloNIDine HCL 0.1 MG TABLET PO ONE (15:30)
[2019-04-19] MEDS ORDERED: hydrALAZINE 20 MG/ML VIAL. IVP ONE (16:15)
[2019-04-19] MEDS ORDERED: ONDANSETRON PF 4 MG/2 ML VIAL. IV PRN ×2 (17:00→17:15)
[2019-04-19] MEDS ORDERED: NITROGLYCERIN SUBLINGUAL 0.4 MG BOTTLE OF 25. SL PRN (17:00)
[2019-04-19] MEDS ORDERED: ACETAMINOPHEN 325 MG TABLET. PO PRN (17:00)
[2019-04-19] MEDS ORDERED: ZOLPIDEM 5 MG TABLET. PO PRN (17:15)
--- NOTE | 2019-04-19 17:20 | PDOC1 ---
History and Physical Date of Admission Date of Admission DATE: 04/19/19 TIME: 17:15 Identification/Chief Complaint Chief Complaint left sided CP and left scapular pain x 3 days Source Source: Caregiver, Chart review, Patient History of Present Illness History of Present Illness 53 AA male, claims tales 2 BP meds (norvasc 5 and another unrecalled - Bb?) - [facility] at [address], chest pain, intermittent, left sided, reproducible on palp? also left scapular pain, denies identifiable precip factor or trauma, WOrk up neg at ER, trop neg, VS: BP high side, no sxs. CXR and shoulder xray neg, CLaims he tried icy hot and OTC meds, no relief, Admitted for CP and left scapular pain and high BP. NO premature CAD in family, non smoker occ drinker, no rec drug use UDS pending Past Medical History Cardiovascular: HTN Past Surgical History Past Surgical History: No pertinent history Family History Family History: Hypertension Social History Smoke: No ALCOHOL: occassional Drugs: None Current Problem List Problem List Problems Medical Problems: (1) Chest pain Status: Acute (2) Hypertension Status: Acute Current Medications Current Medications Current Medications Aspirin (Julio Aspirin) 325 mg 1X ONCE PO Last administered on 04/19/19at 13:55; Start 04/19/19 at 13:45; Stop 04/19/19 at 13:46; Status DC Clonidine HCl (Catapres) 0.1 mg 1X ONCE PO Last administered on 04/19/19at 15:17; Start 04/19/19 at 15:30; Stop 04/19/19 at 15:31; Status DC Hydralazine HCl (Apresoline Inj) 10 mg 1X ONCE IVP Last administered on at 16:27; Start 04/19/19 at 16:15; Stop 04/19/19 at 16:16; Status DC Ondansetron HCl (Zofran) 4 mg PRN Q8HRS PRN IV NAUSEA/VOMITING; Start 04/19/19 at 17:00; Stop 04/20/19 at 16:59 Acetaminophen (Tylenol) 650 mg PRN Q4HRS PRN PO FEVER; Start 04/19/19 at 17:00; Stop 04/20/19 at 16:59 Nitroglycerin (Nitrostat) 0.4 mg PRN Q5MIN PRN SL CHEST PAIN; Start 04/19/19 at 17:00; Stop 04/20/19 at 16:59 Active Scripts Active Amlodipine Besylate 10 Mg Tablet 10 Mg PO DAILY Atenolol 25 Mg Tablet 1 Tab PO BID Lisinopril 20 Mg Tablet 1 Tab PO DAILY Naproxen 375 Mg Tablet 375 Mg PO BID PRN [place] 5-325 Tablet (Acetaminophen/Hydrocodone Bitart) 1 Each Tablet 1 Tab PO PRN Q6HRS PRN Reported Naproxen 500 Mg Tablet 1 Tab PO BID Metoprolol Tartrate 25 Mg Tablet 25 Mg PO BID Amlodipine Besylate 10 Mg Tablet 10 Mg PO DAILY Lisinopril 20 Mg Tablet 20 Mg PO Allergies Allergies: Coded Allergies: No Known Drug Allergies (Unverified , 08/17/13) ROS Review of System as per HPI, rest 14 pt neg Physical Exam General: Alert, Oriented X3, Cooperative, No acute distress HEENT: Atraumatic, PERRLA, EOMI Lungs: Clear to auscultation, Normal air movement, Other (tender to palpating, left side chest wall and left scapular area) Heart: S1S2, RRR, no thrills, no rubs, no gallops, no murmurs Cardiovascular: S1, S2 Abdomen: Normal bowel sounds, Soft, No tenderness, No hepatosplenomegaly, No masses Male Genitals Exam: normal genitalia, normal prostate Rectal Exam: not examined PELVIC: Nml ext genitalia Extremities: No clubbing, No cyanosis, No edema, Normal pulses, No tenderness/swelling Skin: No rashes, No breakdown, No significant lesion Neuro: Normal gait, Normal speech, Strength at 5/5 X4 ext, Normal tone, Sensation intact, Cranial nerves 3-12 NL, Reflexes 2+ Psych/Mental Status: Mental status NL, Mood NL Vitals Vitals Vital Signs Date Time Temp Pulse Resp B/P (MAP) Pulse Ox O2 Delivery O2 Flow Rate FiO2 04/19/19 16:27 64 184/116 04/19/19 16:25 18 96 Room Air 04/19/19 13:05 98.4 98.4 Labs Labs Laboratory Tests Test 04/19/19 14:20 White Blood Count 5.2 x10^3/uL (4.0-11.0) Red Blood Count 4.43 x10^6/uL (4.30-5.70) Hemoglobin 13.6 g/dL (13.0-17.5) Hematocrit 39.7 % (39.0-53.0) Mean Corpuscular Volume 90 fL (79-100) Mean Corpuscular Hemoglobin 31 pg (25-35) Mean Corpuscular Hemoglobin Concent 34 g/dL (31-37) Red Cell Distribution Width 14.8 % (11.5-14.5) Platelet Count 228 x10^3/uL (140-400) Neutrophils (%) (Auto) 59 % (31-73) Lymphocytes (%) (Auto) 23 % (24-48) Monocytes (%) (Auto) 11 % (0-9) Eosinophils (%) (Auto) 8 % (0-3) Basophils (%) (Auto) 1 % (0-3) Neutrophils # (Auto) 3.0 x10^3/uL (1.8-7.7) Lymphocytes # (Auto) 1.2 x10^3/uL (1.0-4.8) Monocytes # (Auto) 0.5 x10^3/uL (0.0-1.1) Eosinophils # (Auto) 0.4 x10^3/uL (0.0-0.7) Basophils # (Auto) 0.0 x10^3/uL (0.0-0.2) Sodium Level 142 mmol/L (136-145) Potassium Level 3.7 mmol/L (3.5-5.1) Chloride Level 105 mmol/L (98-107) Carbon Dioxide Level 31 mmol/L (21-32) Anion Gap 6 (6-14) Blood Urea Nitrogen 12 mg/dL (8-26) Creatinine 1.2 mg/dL (0.7-1.3) Estimated GFR (Cockcroft-Gault) 76.3 BUN/Creatinine Ratio 10 (6-20) Glucose Level 89 mg/dL (70-99) Calcium Level 9.4 mg/dL (8.5-10.1) Total Bilirubin 0.3 mg/dL (0.2-1.0) Aspartate Amino Transf (AST/SGOT) 22 U/L (15-37) Alanine Aminotransferase (ALT/SGPT) 51 U/L (16-63) Alkaline Phosphatase 78 U/L (46-116) Troponin I Quantitative < 0.017 ng/mL (0.000-0.055) Total Protein 7.5 g/dL (6.4-8.2) Albumin 3.9 g/dL (3.4-5.0) Albumin/Globulin Ratio 1.1 (1.0-1.7) Laboratory Tests Test 04/19/19 14:20 White Blood Count 5.2 x10^3/uL (4.0-11.0) Red Blood Count 4.43 x10^6/uL (4.30-5.70) Hemoglobin 13.6 g/dL (13.0-17.5) Hematocrit 39.7 % (39.0-53.0) Mean Corpuscular Volume 90 fL (79-100) Mean Corpuscular Hemoglobin 31 pg (25-35) Mean Corpuscular Hemoglobin Concent 34 g/dL (31-37) Red Cell Distribution Width 14.8 % (11.5-14.5) Platelet Count 228 x10^3/uL (140-400) Neutrophils (%) (Auto) 59 % (31-73) Lymphocytes (%) (Auto) 23 % (24-48) Monocytes (%) (Auto) 11 % (0-9) Eosinophils (%) (Auto) 8 % (0-3) Basophils (%) (Auto) 1 % (0-3) Neutrophils # (Auto) 3.0 x10^3/uL (1.8-7.7) Lymphocytes # (Auto) 1.2 x10^3/uL (1.0-4.8) Monocytes # (Auto) 0.5 x10^3/uL (0.0-1.1) Eosinophils # (Auto) 0.4 x10^3/uL (0.0-0.7) Basophils # (Auto) 0.0 x10^3/uL (0.0-0.2) Sodium Level 142 mmol/L (136-145) Potassium Level 3.7 mmol/L (3.5-5.1) Chloride Level 105 mmol/L (98-107) Carbon Dioxide Level 31 mmol/L (21-32) Anion Gap 6 (6-14) Blood Urea Nitrogen 12 mg/dL (8-26) Creatinine 1.2 mg/dL (0.7-1.3) Estimated GFR (Cockcroft-Gault) 76.3 BUN/Creatinine Ratio 10 (6-20) Glucose Level 89 mg/dL (70-99) Calcium Level 9.4 mg/dL (8.5-10.1) Total Bilirubin 0.3 mg/dL (0.2-1.0) Aspartate Amino Transf (AST/SGOT) 22 U/L (15-37) Alanine Aminotransferase (ALT/SGPT) 51 U/L (16-63) Alkaline Phosphatase 78 U/L (46-116) Troponin I Quantitative < 0.017 ng/mL (0.000-0.055) Total Protein 7.5 g/dL (6.4-8.2) Albumin 3.9 g/dL (3.4-5.0) Albumin/Globulin Ratio 1.1 (1.0-1.7) VTE Prophylaxis Ordered VTE Prophylaxis Devices: Yes VTE Pharmacological Prophylaxi: Yes Assessment/Plan Assessment/Plan 1. COstochondritis, likely 2. LEft scapular pain - try lidoderm and naproxen BID 3. HTN, accelerated - await home meds, verofy with Veronique carson added prns PLAN: OBS, CVC, control BP, control pain, cycle CE< unlikely cardiac though Seen at ER FULL CODE ok to PATRICIA Gallegos MD Apr 19, 2019 17:20
[2019-04-19] MEDS ORDERED: METO50TA6 PO (17:54)
[2019-04-19] MEDS ORDERED: ATOR40TA59 PO (17:54)
[2019-04-19 18:29] VITALS: BP 208/102
[2019-04-19] MEDS: HYDROcodone/APAP 5/325MG 1 TAB TABLET PO PRN (18:31)
[2019-04-19] MEDS: hydrALAZINE 20 MG/ML VIAL. IVP PRN ×2 (18:32→23:16)
[2019-04-19 19:00] VITALS: BP 163/84
[2019-04-19] MEDS: LIDOCAINE (700MG/PATCH) PATCH. TD SCH (20:37)
[2019-04-19] MEDS: ATORVASTATIN CALCIUM 40 MG TABLET. PO SCH (21:52)
[2019-04-19] MEDS: NAPROXEN 500 MG TABLET PO SCH (21:52)
[2019-04-19] MEDS: METOPROLOL TART IMMED RELEASE 25 MG TABLET. PO SCH (21:53)
[2019-04-19 23:00] VITALS: BP 170/106
[2019-04-20] VITALS (9 sets, daily range): BP systolic 158–194; BP diastolic 89–108
[2019-04-20] MEDS: HYDROcodone/APAP 5/325MG 1 TAB TABLET PO PRN ×4 (00:15→21:10)
[2019-04-20] MEDS: NAPROXEN 500 MG TABLET PO SCH ×2 (08:23→21:09)
[2019-04-20] MEDS: amLODIPine BESYLATE 10 MG TABLET PO SCH (08:24)
[2019-04-20] MEDS: METOPROLOL TART IMMED RELEASE 25 MG TABLET. PO SCH ×2 (08:24→21:09)
[2019-04-20] MEDS: LIDOCAINE (700MG/PATCH) PATCH. TD SCH (08:25)
[2019-04-20] MEDS ORDERED: LISINOPRIL 20 MG TABLET PO SCH (09:00)
[2019-04-20] MEDS ORDERED: LISINOPRIL 20 MG TABLET PO ONE ×2 (11:00→23:30)
[2019-04-20] MEDS: hydroCHLOROthiazide 12.5 MG CAPSULE PO SCH (11:24)
--- NOTE | 2019-04-20 13:29 | PDOC2 ---
CONSULT Date of Consult Date of Consult DATE: 04/20/19 TIME: :19 Reason for Consult Reason for Consult: Chest pain Referring Physician Referring Physician: Dr. Mcknight Identification/Chief Complaint Chief Complaint chest pain Source Source: Chart review, Patient History of Present Illness Reason for Visit: The patient is a 53 year old male admitted for several days of chest pain. He has areas of pain both in his chest and shoulder. Troponins have been normal overnight but his BP continues to be elevated. His EKG does show ST T wave changes. He denies a historu of CAD or CHF. He does have a history of HTN and HLD. Past Medical History Cardiovascular: HTN, Hyperlipidemia Past Surgical History Past Surgical History: No pertinent history Family History Family History: Hypertension Social History No ALCOHOL: other (possibly heavy) Drugs: None Current Problem List Problem List Problems Medical Problems: (1) Chest pain Status: Acute (2) Hypertension Status: Acute Current Medications Current Medications Current Medications Aspirin (Julio Aspirin) 325 mg 1X ONCE PO Last administered on 04/19/19at 13:55; Start 04/19/19 at 13:45; Stop 04/19/19 at 13:46; Status DC Clonidine HCl (Catapres) 0.1 mg 1X ONCE PO Last administered on 04/19/19at 15:17; Start 04/19/19 at 15:30; Stop 04/19/19 at 15:31; Status DC Hydralazine HCl (Apresoline Inj) 10 mg 1X ONCE IVP Last administered on 04/19/19at 16:27; Start 04/19/19 at 16:15; Stop 04/19/19 at 16:16; Status DC Ondansetron HCl (Zofran) 4 mg PRN Q8HRS PRN IV NAUSEA/VOMITING; Start 04/19/19 at 17:00; Stop 04/19/19 at 17:15; Status DC Acetaminophen (Tylenol) 650 mg PRN Q4HRS PRN PO FEVER; Start 04/19/19 at 17:00; Stop 04/20/19 at 16:59 Nitroglycerin (Nitrostat) 0.4 mg PRN Q5MIN PRN SL CHEST PAIN; Start 04/19/19 at 17:00; Stop 04/20/19 at 16:59 Ondansetron HCl (Zofran) 4 mg PRN Q6HRS PRN IV NAUSEA/VOMITING; Start 04/19/19 at 17:15 Lidocaine (Lidoderm) 1 patch DAILY TD Last administered on 04/20/19 08:25; Start 04/19/19 at 20:08 Naproxen (Naprosyn) 500 mg BID PO Last administered on 04/20/19 08:25; Start 04/19/19 at 21:00 Amlodipine Besylate (Norvasc) 10 mg DAILY PO Last administered on 04/20/19 08:25; Start 04/20/19 at 09:00 Acetaminophen/ Hydrocodone Bitart (Lortab 5/325) 1 tab PRN Q6HRS PRN PO PAIN Last administered on 04/20/19 06:10; Start 04/19/19 at 17:15 Lisinopril (Prinivil) 20 mg DAILY PO Last administered on 04/20/19 08:25; Start 04/20/19 at 09:00 Metoprolol Tartrate (Lopressor) 25 mg BID PO Last administered on 04/20/19 08:25; Start 04/19/19 at 21:00 Zolpidem Tartrate (Ambien) 5 mg PRN QHS PRN PO INSOMNIA; Start 04/19/19 at 17:15 Hydralazine HCl (Apresoline Inj) 10 mg PRN Q4HRS PRN IVP ELEVATED BP, SEE COMMENTS Last administered on 04/19/19at 23:16; Start 04/19/19 at 17:15 Atorvastatin Calcium (Lipitor) 40 mg HS PO Last administered on 04/19/19at 21:53; Start 04/19/19 at 21:00 Lisinopril (Prinivil) 40 mg DAILY PO ; Start 04/21/19 at 09:00 Lisinopril (Prinivil) 20 mg 1X ONCE PO Last administered on 04/20/19 11:24; Start 04/20/19 at 11:00; Stop 04/20/19 at 11:01; Status DC Hydrochlorothiazide (Microzide) 12.5 mg DAILY PO Last administered on 04/20/19at 11:24; Start 04/20/19 at 11:00 Active Scripts Active Naproxen 375 Mg Tablet 375 Mg PO BID PRN [place] 5-325 Tablet (Acetaminophen/Hydrocodone Bitart) 1 Each Tablet 1 Tab PO PRN Q6HRS PRN Reported Atorvastatin Calcium 40 Mg Tablet 40 Mg PO HS Naproxen 500 Mg Tablet 1 Tab PO BID Metoprolol Tartrate 25 Mg Tablet 50 Mg PO DAILY Amlodipine Besylate 10 Mg Tablet 10 Mg PO DAILY Allergies Allergies: Coded Allergies: No Known Drug Allergies (Unverified , 08/17/13) ROS Cardiovascular: yes Chest Pain, yes Other (shoulder pain) Physical Exam General: mild distress HEENT: Atraumatic Lungs: Clear to auscultation Heart: Regular rate Abdomen: Normal bowel sounds Vitals VITALS Vital Signs Date Time Temp Pulse Resp B/P (MAP) Pulse Ox O2 Delivery O2 Flow Rate FiO2 04/20/19 11:24 70 04/20/19 11:00 18 181/101 (127) 99 Room Air 04/20/19 03:00 97.6 97.6 Labs Labs Laboratory Tests Test 04/19/19 14:20 04/19/19 19:30 White Blood Count 5.2 x10^3/uL (4.0-11.0) Red Blood Count 4.43 x10^6/uL (4.30-5.70) Hemoglobin 13.6 g/dL (13.0-17.5) Hematocrit 39.7 % (39.0-53.0) Mean Corpuscular Volume 90 fL (79-100) Mean Corpuscular Hemoglobin 31 pg (25-35) Mean Corpuscular Hemoglobin Concent 34 g/dL (31-37) Red Cell Distribution Width 14.8 % (11.5-14.5) Platelet Count 228 x10^3/uL (140-400) Neutrophils (%) (Auto) 59 % (31-73) Lymphocytes (%) (Auto) 23 % (24-48) Monocytes (%) (Auto) 11 % (0-9) Eosinophils (%) (Auto) 8 % (0-3) Basophils (%) (Auto) 1 % (0-3) Neutrophils # (Auto) 3.0 x10^3/uL (1.8-7.7) Lymphocytes # (Auto) 1.2 x10^3/uL (1.0-4.8) Monocytes # (Auto) 0.5 x10^3/uL (0.0-1.1) Eosinophils # (Auto) 0.4 x10^3/uL (0.0-0.7) Basophils # (Auto) 0.0 x10^3/uL (0.0-0.2) Sodium Level 142 mmol/L (136-145) Potassium Level 3.7 mmol/L (3.5-5.1) Chloride Level 105 mmol/L (98-107) Carbon Dioxide Level 31 mmol/L (21-32) Anion Gap 6 (6-14) Blood Urea Nitrogen 12 mg/dL (8-26) Creatinine 1.2 mg/dL (0.7-1.3) Estimated GFR (Cockcroft-Gault) 76.3 BUN/Creatinine Ratio 10 (6-20) Glucose Level 89 mg/dL (70-99) Calcium Level 9.4 mg/dL (8.5-10.1) Total Bilirubin 0.3 mg/dL (0.2-1.0) Aspartate Amino Transf (AST/SGOT) 22 U/L (15-37) Alanine Aminotransferase (ALT/SGPT) 51 U/L (16-63) Alkaline Phosphatase 78 U/L (46-116) Troponin I Quantitative < 0.017 ng/mL (0.000-0.055) < 0.017 ng/mL (0.000-0.055) Total Protein 7.5 g/dL (6.4-8.2) Albumin 3.9 g/dL (3.4-5.0) Albumin/Globulin Ratio 1.1 (1.0-1.7) Laboratory Tests Test 04/19/19 14:20 04/19/19 19:30 White Blood Count 5.2 x10^3/uL (4.0-11.0) Red Blood Count 4.43 x10^6/uL (4.30-5.70) Hemoglobin 13.6 g/dL (13.0-17.5) Hematocrit 39.7 % (39.0-53.0) Mean Corpuscular Volume 90 fL (79-100) Mean Corpuscular Hemoglobin 31 pg (25-35) Mean Corpuscular Hemoglobin Concent 34 g/dL (31-37) Red Cell Distribution Width 14.8 % (11.5-14.5) Platelet Count 228 x10^3/uL (140-400) Neutrophils (%) (Auto) 59 % (31-73) Lymphocytes (%) (Auto) 23 % (24-48) Monocytes (%) (Auto) 11 % (0-9) Eosinophils (%) (Auto) 8 % (0-3) Basophils (%) (Auto) 1 % (0-3) Neutrophils # (Auto) 3.0 x10^3/uL (1.8-7.7) Lymphocytes # (Auto) 1.2 x10^3/uL (1.0-4.8) Monocytes # (Auto) 0.5 x10^3/uL (0.0-1.1) Eosinophils # (Auto) 0.4 x10^3/uL (0.0-0.7) Basophils # (Auto) 0.0 x10^3/uL (0.0-0.2) Sodium Level 142 mmol/L (136-145) Potassium Level 3.7 mmol/L (3.5-5.1) Chloride Level 105 mmol/L (98-107) Carbon Dioxide Level 31 mmol/L (21-32) Anion Gap 6 (6-14) Blood Urea Nitrogen 12 mg/dL (8-26) Creatinine 1.2 mg/dL (0.7-1.3) Estimated GFR (Cockcroft-Gault) 76.3 BUN/Creatinine Ratio 10 (6-20) Glucose Level 89 mg/dL (70-99) Calcium Level 9.4 mg/dL (8.5-10.1) Total Bilirubin 0.3 mg/dL (0.2-1.0) Aspartate Amino Transf (AST/SGOT) 22 U/L (15-37) Alanine Aminotransferase (ALT/SGPT) 51 U/L (16-63) Alkaline Phosphatase 78 U/L (46-116) Troponin I Quantitative < 0.017 ng/mL (0.000-0.055) < 0.017 ng/mL (0.000-0.055) Total Protein 7.5 g/dL (6.4-8.2) Albumin 3.9 g/dL (3.4-5.0) Albumin/Globulin Ratio 1.1 (1.0-1.7) Images Images CXR. No acute changes Assessment/Plan Assessment/Plan 1. Chest pain. No elevation in troponin and some of his pain is shoulder pain. However he dose have a significantly abnormal EKG and risk factors of poorly controlled HTN and HLD. Would continue to monitor and check a Lexiscan in the morning. 2. Accel. HTN. Medications increased. ECHO to evaluate in the setting of poorly controlled HTN. 3. HLD. Lab and probable statins. Thank you for allowing us to participate in the care of your patient. ANDREW LAURA MD Apr 20, 2019 13:28
--- NOTE | 2019-04-20 13:45 | PDOC ---
PROGRESS NOTES Chief Complaint Chief Complaint 1. COstochondritis, likely 2. Left scapular pain - try lidoderm and naproxen BID 3. HTN, accelerated - increase meds History of Present Illness History of Present Illness stress test and echo tomorrow back pain, lidocaine patch Vitals Vitals Vital Signs Date Time Temp Pulse Resp B/P (MAP) Pulse Ox O2 Delivery O2 Flow Rate FiO2 04/20/19 11:24 70 04/20/19 11:00 18 181/101 (127) 99 Room Air 04/20/19 03:00 97.6 97.6 Physical Exam General: Alert, Oriented X3, Cooperative, No acute distress Heart: Regular rate Abdomen: Normal bowel sounds Extremities: No clubbing, No cyanosis, No edema, Normal pulses, No tenderness/swelling Skin: No rashes, No breakdown, No significant lesion Labs LABS Laboratory Tests Test 04/19/19 14:20 04/19/19 19:30 White Blood Count 5.2 x10^3/uL (4.0-11.0) Red Blood Count 4.43 x10^6/uL (4.30-5.70) Hemoglobin 13.6 g/dL (13.0-17.5) Hematocrit 39.7 % (39.0-53.0) Mean Corpuscular Volume 90 fL (79-100) Mean Corpuscular Hemoglobin 31 pg (25-35) Mean Corpuscular Hemoglobin Concent 34 g/dL (31-37) Red Cell Distribution Width 14.8 % (11.5-14.5) Platelet Count 228 x10^3/uL (140-400) Neutrophils (%) (Auto) 59 % (31-73) Lymphocytes (%) (Auto) 23 % (24-48) Monocytes (%) (Auto) 11 % (0-9) Eosinophils (%) (Auto) 8 % (0-3) Basophils (%) (Auto) 1 % (0-3) Neutrophils # (Auto) 3.0 x10^3/uL (1.8-7.7) Lymphocytes # (Auto) 1.2 x10^3/uL (1.0-4.8) Monocytes # (Auto) 0.5 x10^3/uL (0.0-1.1) Eosinophils # (Auto) 0.4 x10^3/uL (0.0-0.7) Basophils # (Auto) 0.0 x10^3/uL (0.0-0.2) Sodium Level 142 mmol/L (136-145) Potassium Level 3.7 mmol/L (3.5-5.1) Chloride Level 105 mmol/L (98-107) Carbon Dioxide Level 31 mmol/L (21-32) Anion Gap 6 (6-14) Blood Urea Nitrogen 12 mg/dL (8-26) Creatinine 1.2 mg/dL (0.7-1.3) Estimated GFR (Cockcroft-Gault) 76.3 BUN/Creatinine Ratio 10 (6-20) Glucose Level 89 mg/dL (70-99) Calcium Level 9.4 mg/dL (8.5-10.1) Total Bilirubin 0.3 mg/dL (0.2-1.0) Aspartate Amino Transf (AST/SGOT) 22 U/L (15-37) Alanine Aminotransferase (ALT/SGPT) 51 U/L (16-63) Alkaline Phosphatase 78 U/L (46-116) Troponin I Quantitative < 0.017 ng/mL (0.000-0.055) < 0.017 ng/mL (0.000-0.055) Total Protein 7.5 g/dL (6.4-8.2) Albumin 3.9 g/dL (3.4-5.0) Albumin/Globulin Ratio 1.1 (1.0-1.7) Assessment and Plan Assessmemt and Plan Problems Medical Problems: (1) Chest pain Status: Acute (2) Hypertension Status: Acute Comment Review of Relevant I have reviewed the following items thao (where applicable) has been applied. Labs Laboratory Tests Test 04/19/19 14:20 04/19/19 19:30 White Blood Count 5.2 x10^3/uL (4.0-11.0) Red Blood Count 4.43 x10^6/uL (4.30-5.70) Hemoglobin 13.6 g/dL (13.0-17.5) Hematocrit 39.7 % (39.0-53.0) Mean Corpuscular Volume 90 fL (79-100) Mean Corpuscular Hemoglobin 31 pg (25-35) Mean Corpuscular Hemoglobin Concent 34 g/dL (31-37) Red Cell Distribution Width 14.8 % (11.5-14.5) Platelet Count 228 x10^3/uL (140-400) Neutrophils (%) (Auto) 59 % (31-73) Lymphocytes (%) (Auto) 23 % (24-48) Monocytes (%) (Auto) 11 % (0-9) Eosinophils (%) (Auto) 8 % (0-3) Basophils (%) (Auto) 1 % (0-3) Neutrophils # (Auto) 3.0 x10^3/uL (1.8-7.7) Lymphocytes # (Auto) 1.2 x10^3/uL (1.0-4.8) Monocytes # (Auto) 0.5 x10^3/uL (0.0-1.1) Eosinophils # (Auto) 0.4 x10^3/uL (0.0-0.7) Basophils # (Auto) 0.0 x10^3/uL (0.0-0.2) Sodium Level 142 mmol/L (136-145) Potassium Level 3.7 mmol/L (3.5-5.1) Chloride Level 105 mmol/L (98-107) Carbon Dioxide Level 31 mmol/L (21-32) Anion Gap 6 (6-14) Blood Urea Nitrogen 12 mg/dL (8-26) Creatinine 1.2 mg/dL (0.7-1.3) Estimated GFR (Cockcroft-Gault) 76.3 BUN/Creatinine Ratio 10 (6-20) Glucose Level 89 mg/dL (70-99) Calcium Level 9.4 mg/dL (8.5-10.1) Total Bilirubin 0.3 mg/dL (0.2-1.0) Aspartate Amino Transf (AST/SGOT) 22 U/L (15-37) Alanine Aminotransferase (ALT/SGPT) 51 U/L (16-63) Alkaline Phosphatase 78 U/L (46-116) Troponin I Quantitative < 0.017 ng/mL (0.000-0.055) < 0.017 ng/mL (0.000-0.055) Total Protein 7.5 g/dL (6.4-8.2) Albumin 3.9 g/dL (3.4-5.0) Albumin/Globulin Ratio 1.1 (1.0-1.7) Laboratory Tests Test 04/19/19 14:20 04/19/19 19:30 White Blood Count 5.2 x10^3/uL (4.0-11.0) Red Blood Count 4.43 x10^6/uL (4.30-5.70) Hemoglobin 13.6 g/dL (13.0-17.5) Hematocrit 39.7 % (39.0-53.0) Mean Corpuscular Volume 90 fL (79-100) Mean Corpuscular Hemoglobin 31 pg (25-35) Mean Corpuscular Hemoglobin Concent 34 g/dL (31-37) Red Cell Distribution Width 14.8 % (11.5-14.5) Platelet Count 228 x10^3/uL (140-400) Neutrophils (%) (Auto) 59 % (31-73) Lymphocytes (%) (Auto) 23 % (24-48) Monocytes (%) (Auto) 11 % (0-9) Eosinophils (%) (Auto) 8 % (0-3) Basophils (%) (Auto) 1 % (0-3) Neutrophils # (Auto) 3.0 x10^3/uL (1.8-7.7) Lymphocytes # (Auto) 1.2 x10^3/uL (1.0-4.8) Monocytes # (Auto) 0.5 x10^3/uL (0.0-1.1) Eosinophils # (Auto) 0.4 x10^3/uL (0.0-0.7) Basophils # (Auto) 0.0 x10^3/uL (0.0-0.2) Sodium Level 142 mmol/L (136-145) Potassium Level 3.7 mmol/L (3.5-5.1) Chloride Level 105 mmol/L (98-107) Carbon Dioxide Level 31 mmol/L (21-32) Anion Gap 6 (6-14) Blood Urea Nitrogen 12 mg/dL (8-26) Creatinine 1.2 mg/dL (0.7-1.3) Estimated GFR (Cockcroft-Gault) 76.3 BUN/Creatinine Ratio 10 (6-20) Glucose Level 89 mg/dL (70-99) Calcium Level 9.4 mg/dL (8.5-10.1) Total Bilirubin 0.3 mg/dL (0.2-1.0) Aspartate Amino Transf (AST/SGOT) 22 U/L (15-37) Alanine Aminotransferase (ALT/SGPT) 51 U/L (16-63) Alkaline Phosphatase 78 U/L (46-116) Troponin I Quantitative < 0.017 ng/mL (0.000-0.055) < 0.017 ng/mL (0.000-0.055) Total Protein 7.5 g/dL (6.4-8.2) Albumin 3.9 g/dL (3.4-5.0) Albumin/Globulin Ratio 1.1 (1.0-1.7) Medications Current Medications Aspirin (Julio Aspirin) 325 mg 1X ONCE PO Last administered on 04/19/19at 13:55; Start 04/19/19 at 13:45; Stop 04/19/19 at 13:46; Status DC Clonidine HCl (Catapres) 0.1 mg 1X ONCE PO Last administered on 04/19/19at 15:17; Start 04/19/19 at 15:30; Stop 04/19/19 at 15:31; Status DC Hydralazine HCl (Apresoline Inj) 10 mg 1X ONCE IVP Last administered on 04/19/19at 16:27; Start 04/19/19 at 16:15; Stop 04/19/19 at 16:16; Status DC Ondansetron HCl (Zofran) 4 mg PRN Q8HRS PRN IV NAUSEA/VOMITING; Start 04/19/19 at 17:00; Stop 04/19/19 at 17:15; Status DC Acetaminophen (Tylenol) 650 mg PRN Q4HRS PRN PO FEVER; Start 04/19/19 at 17:00; Stop 04/20/19 at 16:59 Nitroglycerin (Nitrostat) 0.4 mg PRN Q5MIN PRN SL CHEST PAIN; Start 04/19/19 at 17:00; Stop 04/20/19 at 16:59 Ondansetron HCl (Zofran) 4 mg PRN Q6HRS PRN IV NAUSEA/VOMITING; Start 04/19/19 at 17:15 Lidocaine (Lidoderm) 1 patch DAILY TD Last administered on 04/20/19at 08:25; Start 04/19/19 at 20:08 Naproxen (Naprosyn) 500 mg BID PO Last administered on 04/20/19 08:25; Start 04/19/19 at 21:00 Amlodipine Besylate (Norvasc) 10 mg DAILY PO Last administered on 04/20/19 08:25; Start 04/20/19 at 09:00 Acetaminophen/ Hydrocodone Bitart (Lortab 5/325) 1 tab PRN Q6HRS PRN PO PAIN Last administered on 04/20/19 06:10; Start 04/19/19 at 17:15 Lisinopril (Prinivil) 20 mg DAILY PO Last administered on 04/20/19 08:25; Start 04/20/19 at 09:00 Metoprolol Tartrate (Lopressor) 25 mg BID PO Last administered on 04/20/19 08:25; Start 04/19/19 at 21:00 Zolpidem Tartrate (Ambien) 5 mg PRN QHS PRN PO INSOMNIA; Start 04/19/19 at 17:15 Hydralazine HCl (Apresoline Inj) 10 mg PRN Q4HRS PRN IVP ELEVATED BP, SEE COMMENTS Last administered on 04/19/19 23:16; Start 04/19/19 at 17:15 Atorvastatin Calcium (Lipitor) 40 mg HS PO Last administered on 04/19/19at 21:53; Start 04/19/19 at 21:00 Lisinopril (Prinivil) 40 mg DAILY PO ; Start 04/21/19 at 09:00 Lisinopril (Prinivil) 20 mg 1X ONCE PO Last administered on 04/20/19 11:24; Start 04/20/19 at 11:00; Stop 04/20/19 at 11:01; Status DC Hydrochlorothiazide (Microzide) 12.5 mg DAILY PO Last administered on 04/20/19 11:24; Start 04/20/19 at 11:00 Active Scripts Active Naproxen 375 Mg Tablet 375 Mg PO BID PRN [place] 5-325 Tablet (Acetaminophen/Hydrocodone Bitart) 1 Each Tablet 1 Tab PO PRN Q6HRS PRN Reported Atorvastatin Calcium 40 Mg Tablet 40 Mg PO HS Naproxen 500 Mg Tablet 1 Tab PO BID Metoprolol Tartrate 25 Mg Tablet 50 Mg PO DAILY Amlodipine Besylate 10 Mg Tablet 10 Mg PO DAILY Vitals/I & O Vital Sign - Last 24 Hours 04/19/19 04/19/19 04/19/19 04/19/19 14:18 14:48 14:57 15:17 Pulse 66 70 66 65 Resp 18 29 22 B/P (MAP) 189/106 (133) 221/117 (151) 218/121 (153) 218/121 Pulse Ox 95 97 96 O2 Delivery Room Air Room Air Room Air 04/19/19 04/19/19 04/19/19 04/19/19 15:18 15:48 16:05 16:18 Pulse 66 66 66 66 Resp 20 18 16 18 B/P (MAP) 197/123 (147) 210/108 (142) 212/113 (146) 207/113 (144) Pulse Ox 95 95 95 98 O2 Delivery Room Air Room Air Room Air Room Air 04/19/19 04/19/19 04/19/19 04/19/19 16:25 16:27 16:48 18:29 Temp 97.7 97.7 Pulse 66 64 67 70 Resp 18 16 18 B/P (MAP) 184/116 (138) 184/116 165/109 (127) 208/102 (137) Pulse Ox 96 98 98 O2 Delivery Room Air Room Air 04/19/19 04/19/19 04/19/19 04/19/19 18:32 18:32 19:00 19:47 Temp 97.8 97.8 Pulse 79 96 Resp 18 B/P (MAP) 164/92 163/84 (110) Pulse Ox 98 98 O2 Delivery Room Air Room Air Room Air 04/19/19 04/19/19 04/19/19 04/19/19 20:00 21:53 23:00 23:16 Temp 97.8 97.8 Pulse 96 86 82 Resp 18 B/P (MAP) 163/84 170/106 (127) 170/106 Pulse Ox 96 O2 Delivery Room Air Room Air 04/20/19 04/20/19 04/20/19 04/20/19 00:15 01:18 03:00 06:10 Temp 97.6 97.6 Pulse 82 Resp 18 B/P (MAP) 158/95 (116) Pulse Ox 96 O2 Delivery Room Air Room Air Room Air Room Air 04/20/19 04/20/19 04/20/19 04/20/19 07:00 08:15 08:25 08:25 Pulse 67 65 76 Resp 18 B/P (MAP) 194/106 (135) Pulse Ox 99 O2 Delivery Room Air Room Air 04/20/19 04/20/19 04/20/19 04/20/19 08:25 09:21 10:28 11:00 Pulse 65 79 67 67 Resp 18 B/P (MAP) 173/101 (125) 180/103 (128) 181/101 (127) Pulse Ox 99 O2 Delivery Room Air 04/20/19 11:24 Pulse 70 Intake and Output 04/19/19 04/19/19 04/20/19 15:00 23:00 07:00 Intake Total 200 ml Balance 200 ml MAGDALENO CHEW MD Apr 20, 2019 13:45
[2019-04-20] MEDS: hydrALAZINE 20 MG/ML VIAL. IVP PRN ×2 (16:03→19:38)
[2019-04-20] MEDS: ATORVASTATIN CALCIUM 40 MG TABLET. PO SCH (21:08)
[2019-04-21 03:20] VITALS: BP 141/100
[2019-04-21 03:32] VITALS: BP 132/62
[2019-04-21 05:05] LABS: ALBUMIN 4.1 g/dL (3.4-5.0); DIRECT BILIRUBIN 0.1 mg/dL (0.0-0.2); TOTAL BILIRUBIN 0.4 mg/dL (0.2-1.0); TOTAL PROTEIN 7.1 g/dL (6.4-8.2)
[2019-04-21 05:07] LABS: CHOLESTEROL/HDL RATIO 4.1
[2019-04-21 07:00] VITALS: BP 171/94
[2019-04-21] MEDS: hydroCHLOROthiazide 12.5 MG CAPSULE PO SCH (08:42)
[2019-04-21] MEDS: LIDOCAINE (700MG/PATCH) PATCH. TD SCH (08:42)
[2019-04-21] MEDS: amLODIPine BESYLATE 10 MG TABLET PO SCH (08:43)
[2019-04-21] MEDS ORDERED: REGADENOSON 0.4 MG/5 ML DISP.SYRIN. IV ONE (09:00)
[2019-04-21] MEDS ORDERED: LISINOPRIL 20 MG TABLET PO SCH (09:00)
[2019-04-21] MEDS ORDERED: CYCLOBENZAPRINE 10 MG TABLET. PO PRN (10:00)
[2019-04-21] MEDS ORDERED: CYCLOBENZAPRINE 10 MG TABLET. PO ONE (10:00)
[2019-04-21] MEDS ORDERED: HYDR-3164 PO (10:01)
[2019-04-21] MEDS ORDERED: LIDO700A21 TD (10:01)
[2019-04-21] MEDS ORDERED: CYCL10TA2 PO (10:01)
[2019-04-21] MEDS: NAPROXEN 500 MG TABLET PO SCH (10:14)
[2019-04-21] MEDS: HYDROcodone/APAP 5/325MG 1 TAB TABLET PO PRN (10:15)
[2019-04-21] MEDS: METOPROLOL TART IMMED RELEASE 25 MG TABLET. PO SCH (10:15)
[2019-04-21 11:00] VITALS: BP 184/101
[2019-04-21] MEDS ORDERED: AMLO10TA8 PO (11:31)
[2019-04-21] MEDS ORDERED: ATOR40TA59 PO (11:31)
[2019-04-21] MEDS ORDERED: METO25TA4 PO (11:31)
[2019-04-21] MEDS ORDERED: LISI-130 PO (11:31)
[2019-04-21] MEDS ORDERED: HYDR12.575 PO (11:31)
--- NOTE | 2019-04-21 11:59 | RAD ---
MR#: [id number] Date of Study: 04/21/2019 Ordering Physician: ANDREW RYDER, Referring Physician: MANDY HOWARD Tech: RT Barry Vieira) (N) APPROVED REPORT Test Type: Pharmacological Stress Nurse/Tech: Shelly Velasco R.N. Test Indications: C/p Cardiac History: HTN, Medications: See Electronic Medical Record Medical History: See Electronic Medical Record Resting Heart Rate: 74 bpm Resting Blood Pressure: 187/107mmHg Pretest Chest Pain: No chest pain Nurse/Tech Notes S1S2, lungs CTA. pt c/o left shoulder pain and originally stated that it came with the c/p but later stated that he had the shoulder pain for 3 weeks prior to any chest pain Consent: The procedure was explained to the patient in lay terms. Informed consent was witnessed. Nahun eout was entered into [employer]. History and Stress Test performed by RT Isha (R) (N) Pharm. Details Pharmacologic stress testing was performed using 0.4mg per 5ml of regadenoson given intravenously ove r 7-10 seconds. Stress Symptoms SOB, flushed POST EXERCISE Reason for Termination: Infusion complete Max HR: 118 bpm Max Blood Pressure: 203/103mmHg Blood Pressure response to exercise: Normal blood pressure response during stress. Heart Rate response to exercise: wnl Chest Pain: No. Arrhythmia: No. INTERPRETATION Stress EKG Conclusion: The resting EKG shows a sinus rhythm with diffuse ST T wave changes. The stress EKG shows no signignificant changes from baseline. Abnormal resting EKG but no EKG evidence of stress induced ischemia. Imaging Protocol IMAGE PROTOCOL: Rest Tc-99m/stress Tc-99m 1 day Rest: Stress: Viability: Radiopharm.Tc99m [id number] Sestamibi Dose10.6mCi 31.8mCi Duration 15min. 15min. Img Date 04/21/2019 04/21/2019 Inj-Img Clah68fhw. 60min. Rest Admin Site:IV - Left AntecubitalAdministrator:RT Adalgisa VieiraR)(N) Stress Admin Site: IV - Left AntecubitalAdministrator: Millicent Chavez, RT (R)(N) STRESS DATA End Diast. Vol.122.0mlAv. Heart Rate85.0bpm End Syst. Vol.31.0mlCO Index BSA0.0L/min Myocardial Nolo632.0gEject. Dpatycnu37.0% Stress Rates Pk. Fill Rate2.81EDV/secLVtime Pk. Fill 157.89msec Pk. Empty Rate5.11ESV/secLVtime Pk. Rjrzj705.73msec 09/06 Pk. Fill1.62EDV/sec Stress Scores Regional WT2.00Summed WT19.00 Regional WM0.00Summed WM0.00 LV Perfusion The stress images show no significant defects. The rest images show no significant defects. Nuclear imaging shows no reversible ischemia or infarct. LV Perf. Quant 17 Seg. SSS0.00 17 Seg. SRS0.00 17 Seg. SDS0.00 Stress Defect Extent (% LAD)0.00Rest Defect Extent (% LAD)0.00Rev. Defect Extent (% LAD)0.00 Stress Defect Extent (% LCX) 0.00Rest Defect Extent (% LCX)0.00Rev. Defect Extent (% LCX)0.00 Stress Defect Extent (% RCA)0.00Rest Defect Extent (% RCA)0.00Rev. Defect Extent (% RCA)0.00 Stress Defect Extent (% AMY)0.00Rest Defect Extent (% AMY)0.00Rev. Defect Extent (% AMY)0.00 Conclusion 1. Abnornal resting EKG but no EKG evidence of stress induced ischemia. 2. Nuclear imaging shows no reversible ischemia or infarct. Signed by : Andrew Ryder MD Electronically Approved : 04/21/2019 11:58:36
--- NOTE | 2019-04-21 12:19 | CARD ---
MR#: [id number] Date of Study: 04/21/2019 Ordering Physician: ANDREW RYDER, Referring Physician: ANDREW RYDER, Tech: Gerri Bejarano [place] APPROVED REPORT EXAM: Two-dimensional and M-mode echocardiogram with Doppler and color Doppler. Other Information Quality : Good INDICATION Abnormal ECG Hypertension/HCVD 2D DIMENSIONS RVDd3.0 (2.9-3.5cm)Left Atrium(2D)3.4 (1.6-4.0cm) IVSd1.4 (0.7-1.1cm)Aortic Root(2D)3.0 (2.0-3.7cm) LVDd3.8 (3.9-5.9cm)LVOT Diameter2.1 (1.8-2.4cm) PWd1.0 (0.7-1.1cm)LVDs2.6 (2.5-4.0cm) FS (%) 31.8 %SV37.0 ml LVEF(%)60.6 (>50%) Aortic Valve AoV Peak Cristian.161.3cm/sAoV VTI25.0cm AO Peak GR.10.4mmHgLVOT VTI 27.33cm AO Mean GR.5mmHgAVA (VTI)3.60cm2 Mitral Valve MV E Tjzsrbrv23.0cm/sMV DECEL DHIG365ty MV A Wiekeiei03.4cm/sE/A Ratio0.7 TDI Lateral E' P. V5.79cm/sMedial E' P. V5.47cm/s E/Lateral E'9.3E/Medial E'9.9 Pulmonary Vein S1 Wapnotrw18.9cm/sS2 Jjyyhdvh59.82cm/s D2 Baxjmqrr22.8cm/s LEFT VENTRICLE The left ventricle is normal size. There is moderate concentric left ventricular hypertrophy. The lef t ventricular systolic function is normal and the ejection fraction is within normal range. The Eject ion Fraction is 55-60%. There is normal LV segmental wall motion. Transmitral Doppler flow pattern is Grade I-abnormal relaxation pattern. RIGHT VENTRICLE The right ventricle is normal size. The right ventricular systolic function is normal. ATRIA The left atrium size is normal. The right atrium size is normal. The interatrial septum is intact wit h no evidence for an atrial septal defect or patent foramen ovale as noted on 2-D or Doppler imaging. AORTIC VALVE The aortic valve is calcified but opens well. Doppler and Color Flow revealed no significant aortic r egurgitation. There is no significant aortic valvular stenosis. MITRAL VALVE The mitral valve is normal in structure and function. There is no evidence of mitral valve prolapse. There is no mitral valve stenosis. Doppler and Color Flow revealed no mitral valve regurgitation note d. TRICUSPID VALVE The tricuspid valve is normal in structure and function. Doppler and Color Flow revealed no tricuspid valve regurgitation noted. There is no tricuspid valve stenosis. PULMONIC VALVE The pulmonary valve is normal in structure and function. Doppler and Color Flow revealed no pulmonic valvular regurgitation. There is no pulmonic valvular stenosis. GREAT VESSELS The aortic root is normal in size. The ascending aorta is normal in size. The IVC is normal in size a nd collapses >50% with inspiration. PERICARDIAL EFFUSION There is no evidence of significant pericardial effusion. Critical Notification Critical Value: No <Conclusion> The left ventricle is normal size. The left ventricular systolic function is normal and the ejection fraction is within normal range. The Ejection Fraction is 55-60%. There is moderate concentric left ventricular hypertrophy. Doppler and Color Flow revealed no significant aortic regurgitation. There is no significant aortic valvular stenosis. Doppler and Color Flow revealed no mitral valve regurgitation noted. Doppler and Color Flow revealed no tricuspid valve regurgitation noted. Signed by : Andrew Ryder MD Electronically Approved : 04/21/2019 12:19:44
--- NOTE | 2019-04-21 14:20 | PDOC ---
PROGRESS NOTES Subjective Subjective Patient seen and examined Objective Objective Vital Signs Date Time Temp Pulse Resp B/P (MAP) Pulse Ox O2 Delivery O2 Flow Rate FiO2 04/21/19 11:00 97.5 85 16 184/101 (128) 97 Room Air 97.5 Intake and Output 04/21/19 07:00 Intake Total 200 ml Balance 200 ml Intake Oral 200 ml # Voids 2 Physical Exam Abdomen: Normal bowel sounds Heart: Regular rate General: No acute distress Lungs: Clear to auscultation Assessment Assessment Problems Medical Problems: (1) Chest pain Status: Acute (2) Hypertension Status: Acute 1. Chest pain. No elevation in troponin and some of his pain is shoulder pain. Feeling better. MPI today. 2. Accel. HTN. Medications being adjusted. ECHO today. 3. HLD. Mildly increased LDL. Attempt diet control. Comment Review of Relevant I have reviewed the following items thao (where applicable) has been applied. Labs Laboratory Tests Test 04/19/19 14:20 04/19/19 19:30 04/21/19 04:00 White Blood Count 5.2 x10^3/uL (4.0-11.0) Red Blood Count 4.43 x10^6/uL (4.30-5.70) Hemoglobin 13.6 g/dL (13.0-17.5) Hematocrit 39.7 % (39.0-53.0) Mean Corpuscular Volume 90 fL (79-100) Mean Corpuscular Hemoglobin 31 pg (25-35) Mean Corpuscular Hemoglobin Concent 34 g/dL (31-37) Red Cell Distribution Width 14.8 % (11.5-14.5) Platelet Count 228 x10^3/uL (140-400) Neutrophils (%) (Auto) 59 % (31-73) Lymphocytes (%) (Auto) 23 % (24-48) Monocytes (%) (Auto) 11 % (0-9) Eosinophils (%) (Auto) 8 % (0-3) Basophils (%) (Auto) 1 % (0-3) Neutrophils # (Auto) 3.0 x10^3/uL (1.8-7.7) Lymphocytes # (Auto) 1.2 x10^3/uL (1.0-4.8) Monocytes # (Auto) 0.5 x10^3/uL (0.0-1.1) Eosinophils # (Auto) 0.4 x10^3/uL (0.0-0.7) Basophils # (Auto) 0.0 x10^3/uL (0.0-0.2) Sodium Level 142 mmol/L (136-145) Potassium Level 3.7 mmol/L (3.5-5.1) Chloride Level 105 mmol/L (98-107) Carbon Dioxide Level 31 mmol/L (21-32) Anion Gap 6 (6-14) Blood Urea Nitrogen 12 mg/dL (8-26) Creatinine 1.2 mg/dL (0.7-1.3) Estimated GFR (Cockcroft-Gault) 76.3 BUN/Creatinine Ratio 10 (6-20) Glucose Level 89 mg/dL (70-99) Calcium Level 9.4 mg/dL (8.5-10.1) Total Bilirubin 0.3 mg/dL (0.2-1.0) 0.4 mg/dL (0.2-1.0) Aspartate Amino Transf (AST/SGOT) 22 U/L (15-37) 23 U/L (15-37) Alanine Aminotransferase (ALT/SGPT) 51 U/L (16-63) 54 U/L (16-63) Alkaline Phosphatase 78 U/L (46-116) 87 U/L (46-116) Troponin I Quantitative < 0.017 ng/mL (0.000-0.055) < 0.017 ng/mL (0.000-0.055) Total Protein 7.5 g/dL (6.4-8.2) 7.1 g/dL (6.4-8.2) Albumin 3.9 g/dL (3.4-5.0) 4.1 g/dL (3.4-5.0) Albumin/Globulin Ratio 1.1 (1.0-1.7) Direct Bilirubin 0.1 mg/dL (0.0-0.2) Triglycerides Level 166 mg/dL (0-150) Cholesterol Level 186 mg/dL (0-200) LDL Cholesterol, Calculated 108 mg/dL (0-100) VLDL Cholesterol, Calculated 33 mg/dL (0-40) Non-HDL Cholesterol Calculated 141 mg/dL (0-129) HDL Cholesterol 45 mg/dL (40-60) Cholesterol/HDL Ratio 4.1 Laboratory Tests Test 04/21/19 04:00 Total Bilirubin 0.4 mg/dL (0.2-1.0) Direct Bilirubin 0.1 mg/dL (0.0-0.2) Aspartate Amino Transf (AST/SGOT) 23 U/L (15-37) Alanine Aminotransferase (ALT/SGPT) 54 U/L (16-63) Alkaline Phosphatase 87 U/L (46-116) Total Protein 7.1 g/dL (6.4-8.2) Albumin 4.1 g/dL (3.4-5.0) Triglycerides Level 166 mg/dL (0-150) Cholesterol Level 186 mg/dL (0-200) LDL Cholesterol, Calculated 108 mg/dL (0-100) VLDL Cholesterol, Calculated 33 mg/dL (0-40) Non-HDL Cholesterol Calculated 141 mg/dL (0-129) HDL Cholesterol 45 mg/dL (40-60) Cholesterol/HDL Ratio 4.1 Medications Current Medications Aspirin (PaxVax Aspirin) 325 mg 1X ONCE PO Last administered on 04/19/19at 13:55; Start 04/19/19 at 13:45; Stop 04/19/19 at 13:46; Status DC Clonidine HCl (Catapres) 0.1 mg 1X ONCE PO Last administered on 04/19/19at 15:17; Start 04/19/19 at 15:30; Stop 04/19/19 at 15:31; Status DC Hydralazine HCl (Apresoline Inj) 10 mg 1X ONCE IVP Last administered on 04/19/19at 16:27; Start 04/19/19 at 16:15; Stop 04/19/19 at 16:16; Status DC Ondansetron HCl (Zofran) 4 mg PRN Q8HRS PRN IV NAUSEA/VOMITING; Start 04/19/19 at 17:00; Stop 04/19/19 at 17:15; Status DC Acetaminophen (Tylenol) 650 mg PRN Q4HRS PRN PO FEVER; Start 04/19/19 at 17:00; Stop 04/20/19 at 16:59; Status DC Nitroglycerin (Nitrostat) 0.4 mg PRN Q5MIN PRN SL CHEST PAIN; Start 04/19/19 at 17:00; Stop 04/20/19 at 16:59; Status DC Ondansetron HCl (Zofran) 4 mg PRN Q6HRS PRN IV NAUSEA/VOMITING; Start 04/19/19 at 17:15 Lidocaine (Lidoderm) 1 patch DAILY TD Last administered on 04/21/19 08:45; Start 04/19/19 at 20:08 Naproxen (Naprosyn) 500 mg BID PO Last administered on 04/21/19 10:16; Start 04/19/19 at 21:00 Amlodipine Besylate (Norvasc) 10 mg DAILY PO Last administered on 04/21/19 08:45; Start 04/20/19 at 09:00 Acetaminophen/ Hydrocodone Bitart (Lortab 5/325) 1 tab PRN Q6HRS PRN PO PAIN Last administered on 04/21/19 10:16; Start 04/19/19 at 17:15 Lisinopril (Prinivil) 20 mg DAILY PO Last administered on 04/20/19 08:25; Start 04/20/19 at 09:00; Stop 04/21/19 at 09:12; Status DC Metoprolol Tartrate (Lopressor) 25 mg BID PO Last administered on 04/21/19 10:16; Start 04/19/19 at 21:00 Zolpidem Tartrate (Ambien) 5 mg PRN QHS PRN PO INSOMNIA; Start 04/19/19 at 17:15 Hydralazine HCl (Apresoline Inj) 10 mg PRN Q4HRS PRN IVP ELEVATED BP, SEE COMMENTS Last administered on 04/20/19at 19:38; Start 04/19/19 at 17:15 Atorvastatin Calcium (Lipitor) 40 mg HS PO Last administered on 04/20/19 21:10; Start 04/19/19 at 21:00 Lisinopril (Prinivil) 40 mg DAILY PO Last administered on 04/21/19 08:45; Start 04/21/19 at 09:00 Lisinopril (Prinivil) 20 mg 1X ONCE PO Last administered on 04/20/19 11:24; Start 04/20/19 at 11:00; Stop 04/20/19 at 11:01; Status DC Hydrochlorothiazide (Microzide) 12.5 mg DAILY PO Last administered on 8/18/19at 08:45; Start 04/20/19 at 11:00 Lisinopril (Prinivil) 20 mg 1X ONCE PO Last administered on 04/20/19at 23:28; Start 04/20/19 at 23:30; Stop 04/20/19 at 23:31; Status DC Regadenoson (Lexiscan) 0.4 mg 1X ONCE IV Last administered on 04/21/19at 09:45; Start 04/21/19 at 09:00; Stop 04/21/19 at 09:04; Status DC Cyclobenzaprine HCl (Flexeril) 10 mg PRN Q6HRS PRN PO MUSCLE SPASMS; Start 04/21/19 at 10:00 Cyclobenzaprine HCl (Flexeril) 10 mg 1X ONCE PO Last administered on 04/21/19at 10:16; Start 04/21/19 at 10:00; Stop 04/21/19 at 10:10; Status DC Active Scripts Active Hydrochlorothiazide Capsule (Hydrochlorothiazide) 12.5 Mg Capsule 12.5 Mg PO DAILY Lisinopril 40 Mg Tablet 40 Mg PO DAILY Atorvastatin Calcium 40 Mg Tablet 40 Mg PO HS Metoprolol Tartrate 25 Mg Tablet 25 Mg PO [id number] Amlodipine Besylate 10 Mg Tablet 10 Mg PO DAILY Cyclobenzaprine Hcl 10 Mg Tablet 10 Mg PO PRN Q6HRS PRN Lidocaine PATCH (Lidocaine) 1 Each Adh..patch 1 Patch TD DAILY [place] 5-325 Tablet (Acetaminophen/Hydrocodone Bitart) 1 Each Tablet 1 Tab PO PRN Q6HRS PRN Reported Naproxen 500 Mg Tablet 1 Tab PO BID Vitals/I & O Vital Sign - Last 24 Hours 04/20/19 04/20/19 04/20/19 04/20/19 15:00 16:03 16:47 19:10 Temp 97.5 97.9 97.5 97.9 Pulse 73 80 82 79 Resp 18 16 B/P (MAP) 194/102 (132) 165/89 (114) 169/107 (127) Pulse Ox 97 95 O2 Delivery Room Air Room Air 04/20/19 04/20/19 04/20/19 04/20/19 19:38 20:12 21:10 21:10 Pulse 74 83 B/P (MAP) 169/107 169/107 O2 Delivery Room Air Room Air 04/20/19 04/20/19 04/20/19 04/21/19 22:50 23:28 23:38 03:20 Temp 97.6 97.5 97.6 97.5 Pulse 87 81 71 Resp 16 16 B/P (MAP) 173/108 (129) 173/108 141/100 (114) Pulse Ox 96 97 O2 Delivery Room Air Room Air Room Air 04/21/19 04/21/19 04/21/19 04/21/19 07:00 08:45 08:45 10:16 Temp 97.6 97.6 Pulse 72 75 70 95 Resp 16 B/P (MAP) 171/94 (119) Pulse Ox 98 O2 Delivery Room Air 04/21/19 11:00 Temp 97.5 97.5 Pulse 85 Resp 16 B/P (MAP) 184/101 (128) Pulse Ox 97 O2 Delivery Room Air Intake and Output 04/20/19 04/20/19 04/21/19 15:00 23:00 07:00 Intake Total 100 ml 100 ml Balance 100 ml 100 ml ANDREW LAURA MD Apr 21, 2019 14:20
--- NOTE | 2019-04-21 14:47 | PDOC3 ---
Discharge Summary Visit Information Date of Admission: Apr 19, 2019 Date of Discharge: Apr 21, 2019 Final Diagnosis 1. COstochondritis, likely 2. Left scapular pain - try lidoderm and naproxen BID 3. HTN, accelerated - on chronic hypertensions Medical Problems: (1) Chest pain Status: Acute (2) Hypertension Status: Acute Brief Hospital Course Allergies Allergies Coded Allergies Type Severity Reaction Last Updated Verified No Known Drug Allergies 08/17/13 No Vital Signs Vital Signs Date Time Temp Pulse Resp B/P (MAP) Pulse Ox O2 Delivery O2 Flow Rate FiO2 04/21/19 11:00 97.5 85 16 184/101 (128) 97 Room Air 97.5 Lab Results Laboratory Tests Test 04/19/19 19:30 04/21/19 04:00 Troponin I Quantitative < 0.017 ng/mL (0.000-0.055) Total Bilirubin 0.4 mg/dL (0.2-1.0) Direct Bilirubin 0.1 mg/dL (0.0-0.2) Aspartate Amino Transf (AST/SGOT) 23 U/L (15-37) Alanine Aminotransferase (ALT/SGPT) 54 U/L (16-63) Alkaline Phosphatase 87 U/L (46-116) Total Protein 7.1 g/dL (6.4-8.2) Albumin 4.1 g/dL (3.4-5.0) Triglycerides Level 166 mg/dL (0-150) Cholesterol Level 186 mg/dL (0-200) LDL Cholesterol, Calculated 108 mg/dL (0-100) VLDL Cholesterol, Calculated 33 mg/dL (0-40) Non-HDL Cholesterol Calculated 141 mg/dL (0-129) HDL Cholesterol 45 mg/dL (40-60) Cholesterol/HDL Ratio 4.1 Laboratory Tests Test 04/21/19 04:00 Total Bilirubin 0.4 mg/dL (0.2-1.0) Direct Bilirubin 0.1 mg/dL (0.0-0.2) Aspartate Amino Transf (AST/SGOT) 23 U/L (15-37) Alanine Aminotransferase (ALT/SGPT) 54 U/L (16-63) Alkaline Phosphatase 87 U/L (46-116) Total Protein 7.1 g/dL (6.4-8.2) Albumin 4.1 g/dL (3.4-5.0) Triglycerides Level 166 mg/dL (0-150) Cholesterol Level 186 mg/dL (0-200) LDL Cholesterol, Calculated 108 mg/dL (0-100) VLDL Cholesterol, Calculated 33 mg/dL (0-40) Non-HDL Cholesterol Calculated 141 mg/dL (0-129) HDL Cholesterol 45 mg/dL (40-60) Cholesterol/HDL Ratio 4.1 Brief Hospital Course Mr. Hidalgo is a 53 old admit with chest pain back pain, back pain is spasm, muscle pain, better with flexeril, ice, lidoderm, tryed to consult physiatry for injections, was placed too late on a monday, he may f/u in clinic echo ok, res. below. MPI stress was done before DC, only dc if res. low prob. HTN meds increased f/u primary care, Discharge Information Condition at Discharge: Improved Follow Up: Weeks Disposition/Orders: D/C to Home Scheduled Amlodipine Besylate (Amlodipine Besylate) 10 Mg Tablet, 10 MG PO DAILY for htn, #20 Ref 3 Prescribed by: MAGDALENO CHEW on 04/21/19 1131 Atorvastatin Calcium (Atorvastatin Calcium) 40 Mg Tablet, 40 MG PO HS for cholesterol, #30 Ref 2 Prescribed by: MAGDALENO CHEW on 04/21/19 1131 Hydrochlorothiazide (Hydrochlorothiazide Capsule ) 12.5 Mg Capsule, 12.5 MG PO DAILY for htn, #30 Ref 3 Prescribed by: MAGDALENO CHEW on 04/21/19 1131 Lidocaine (Lidocaine PATCH ) 1 Each Adh..patch, 1 PATCH TD DAILY for back pain, #7 Prescribed by: MAGDALENO CHEW on 04/21/19 1001 Lisinopril (Lisinopril) 40 Mg Tablet, 40 MG PO DAILY for htn, #20 Ref 1 Prescribed by: MAGDALENO CHEW on 04/21/19 1131 Metoprolol Tartrate (Metoprolol Tartrate) 25 Mg Tablet, 25 MG PO [id number] for HTN, #60 Ref 3 Prescribed by: MAGDALENO CEHW on 04/21/19 1131 Naproxen (Naproxen) 500 Mg Tablet, 1 TAB PO BID, #60 (Reported) Entered as Reported by: MADIE MARTINEZ on 09/21/141738 Last Action: HELD on 04/19/191713 by PATRICIA WILSON Scheduled PRN Cyclobenzaprine Hcl (Cyclobenzaprine Hcl) 10 Mg Tablet, 10 MG PO PRN Q6HRS PRN for MUSCLE SPASMS, #30 Prescribed by: MAGDALENO CHEW on 04/21/19 1001 Hydrocodone/Apap 5-325 ([place] 5-325 Tablet) 1 Each Tablet, 1 TAB PO PRN Q6HRS PRN for PAIN, #10 Prescribed by: MAGDALENO CHEW on 04/21/19 1001 Discontinued Medications Naproxen (Naproxen) 375 Mg Tablet, 375 MG PO BID PRN for PAIN, #20 Prescribed by: JUDI GARCIA MD on 10/29/16 1744 Last Action: HELD on 04/19/191713 by PATRICIA WILSON Patient Instructions Patient Instructions face to face > 30 min ECHO<Conclusion> The left ventricle is normal size. The left ventricular systolic function is normal and the ejection fraction is within normal range. The Ejection Fraction is 55-60%. There is moderate concentric left ventricular hypertrophy. Doppler and Color Flow revealed no significant aortic regurgitation. There is no significant aortic valvular stenosis. Doppler and Color Flow revealed no mitral valve regurgitation noted. Doppler and Color Flow revealed no tricuspid valve regurgitation noted. MAGDALENO CHEW MD Apr 21, 2019 14:47
--- NOTE | 2019-04-21 15:04 | NUR ---
Discharge: Teaching verbal and written. Reviewed medications, following, ECHO, MPI, Hypertension, cardiac diet, Muscle pain, ect. 8 written prescriptions given to patient. All belongings with patient. Patient ambulated off of unit accompanied by girlfriend and nurse.
== END 2019-04-21 14:45 | disposition home or self-care (01) | DRG 206 ==
LOC: ER 12:57 → 2 SOUTH 16:53
PROVIDERS: ADMIT Internal Medicine; ATTEND Internal Medicine
DX: M94.0 Chondrocostal junction syndrome [Tietze] (principal); E78.00 Pure hypercholesterolemia, unspecified; I10 Essential (primary) hypertension; M10.9 Gout, unspecified; G43.909 Migraine, unspecified, not intractable, without status migrainosus; E78.5 Hyperlipidemia, unspecified; Z82.49 Family history of ischemic heart disease and other diseases of the circulatory system; Z79.899 Other long term (current) drug therapy
CPT/HCPCS: 36415; 71046; 73010; 78452; 80053; 80061; 80076; 84484; 85025; 93005; 93017; 93306; A9500; J0360; J2785; G0378